=== PATIENT | male | born 1930 | race Caucasian/White ===

== ENCOUNTER 2016-07-12 03:31 | Emergency (ER) | payer MEDICARE ==
[~2016-07-12] VITALS: Ht 167.6 cm; Wt 90.7 kg
[2016-07-12] MEDS ORDERED: SIMV40TA2 PO (03:40)
[2016-07-12] MEDS ORDERED: LOSA25TA8 PO (03:40)
[2016-07-12] MEDS ORDERED: LEVO25TA5 PO (03:41)
[2016-07-12] MEDS ORDERED: EYECAP PO (03:42)
[2016-07-12] MEDS ORDERED: INSULIN SUBQ (03:43)
[2016-07-12 04:25] LABS: BASO % 0.3 % (0.0-1.0); EOS # 0.1 K/mm3 (0.0-0.50); EOS % 2.9 % (0.0-3.0); LARGE UNSTAINED CELL # 0.1 K/mm3 (0.0-0.4); LYMPH # 0.6 K/mm3 (1.5-4.5); LYMPH % 11.2 % (24.0-44.0); MEAN CORPUSCULAR HEMOGLOBIN 31.3 pg (27.0-33.0); MEAN CORPUSCULAR HGB CONC 32.4 g/dl (32.0-36.5); MEAN CORPUSCULAR VOLUME 96.5 fl (80.0-96.0); MONO # 0.5 K/mm3 (0.0-0.8); MONO % 9.7 % (0.0-5.0); NEUTROPHILS # 3.6 K/mm3 (1.8-7.7); PLATELET COUNT, AUTOMATED 215 k/mm3 (150-450); RED CELL DISTRIBUTION WIDTH 14.1 % (11.5-14.5); WHITE BLOOD COUNT 4.9 K/mm3 (4.0-10.0)
[2016-07-12 04:39] LABS: CALCIUM LEVEL 8.6 MG/DL (8.8-10.2); CREATININE FOR GFR 1.38 MG/DL (0.70-1.30); GLOMERULAR FILTRATION RATE 51.8 (>35); POTASSIUM SERUM 4.6 MEQ/L (3.5-5.1)
[2016-07-12] MEDS ORDERED: ISOVUE-370 76% 100ML VIAL (Q9967) As Ordered ONE (05:33)
--- NOTE | 2016-07-12 06:20 | REPUSA ---
CLINICAL HISTORY: Abdominal pain. TECHNIQUE: Multiple axial, sagittal and coronal CT images were obtained through the abdomen and pelvi s after administration of oral and intravenous contrast material. Images were obtained before and aft er IV contrast administration. COMMENTS: The liver is mildly enlarged with decreased attenuation without mass or defect. There is no intra or extrahepatic biliary ductal dilatation. The spleen is normal. The gallbladder contains multiple galls tones. The pancreas is of normal contour and attenuation characteristics. There is no evidence of adr enal mass. Bilateral simple renal cysts. Both kidneys demonstrate prompt and equal nephrograms. The kidneys are normal in size, shape and conf iguration. There is no evidence of renal or ureteral mass. No renal or ureteral calculi are identifie d. There is no hydroureter or hydronephrosis. No evidence for appendicitis. There is no bowel wall thickening. No evidence for small or large helrinda l obstruction. There is no evidence of abdominal ascites or lymphadenopathy. Uncomplicated clonic diverticulosis. There is no evidence of intrinsic or extrinsic bladder mass. There is no pelvic ascites or lymphadeno juan carlos. Urinary catheter balloon in the bladder. Mild diffuse thickening of the wall of the bladder. P rior prostatectomy. Images of the lung bases show no evidence of pleural or parenchymal mass. There are no pleural effusi ons. The bony structures are free of lytic or blastic lesions. Multilevel degenerative changes are seen in volving the thoracolumbar spine. Scattered calcifications are seen involving the aorta and major bran ches compatible with atherosclerosis. IMPRESSION: Diffusely thickened bladder suggestive of mild cystitis. Urinary catheter balloon is seen in the bladder. Prior prostatectomy. Uncomplicated diverticulosis. Mild hepatomegaly with fatty liver infiltration. Mild large bowel fecal stasis. Hepatomegaly with fat infiltration. Thank you for your kind referral of this patient.
[2016-07-12 10:17] LABS: MICROSCOPIC INDICATED? MAN YES (NO)
[2016-07-12 10:19] LABS: RBC, URINE TNTC /hpf (0-3); SQUAMOUS EPITHELIAL CELL URINE SMALL AMOUNT /hpf (SMALL AMT)
[2016-07-12 10:20] LABS: BACTERIA, URINE SMALL AMOUNT; HYALINE CAST, URINE NONE SEEN /lpf (0-1); MICROSCOPIC EXAM PERFORMED
[2016-07-12] MEDS ORDERED: BACT800T5 PO (14:39)
[2016-07-12 15:16] VITALS: BP 160/83
== END 2016-07-12 15:17 | disposition home or self-care (01) ==
LOC: M ED 05:14
DX: N30.41 Irradiation cystitis with hematuria (principal); C61 Malignant neoplasm of prostate
CPT/HCPCS: 51702; 74177; 80048; 81000; 81015; 85025; 85610; 85730; 87086; 88108; 99284; Q9967

== ENCOUNTER 2016-07-22 12:14 | Emergency (ER) | payer MEDICARE ==
[~2016-07-22] VITALS: Ht 167.6 cm; Wt 90.7 kg
[~2016-07-22 12:14] MED LIST: BACT800T5 PO; EYECAP PO; INSULIN SUBQ; LEVO25TA5 PO; LOSA25TA8 PO; SIMV40TA2 PO
[2016-07-22] MEDS ORDERED: PREDOPD OS (12:29)
[2016-07-22] MEDS ORDERED: MORPHINE 4 MG/ML 1ML SYRINGE IM ONE (13:15)
[2016-07-22] MEDS ORDERED: MORPHINE 4 MG/ML 1ML SYRINGE IV ONE (14:00)
[2016-07-22] MEDS ORDERED: NORCOTAB PO (14:49)
--- NOTE | 2016-07-22 14:49 | REP ---
Clinical: Trauma. Technique: AP, lateral, bilateral oblique views of the right elbow. Findings: Age-related osteopenia and moderate osteoarthritic degenerative changes are appreciated. No acute fracture dislocation. Lateral view demonstrates normal positioning to the anterior and posterior fat pads without evidence for effusion. Impression: Moderate osteoarthritic degenerative changes. No acute fracture or dislocation. Signed by Galdino Mason MD 07/22/2016 02:40 P
[2016-07-22] MEDS ORDERED: BACI500O59 EX (14:51)
[2016-07-22 15:12] VITALS: BP 104/66
--- NOTE | 2016-07-22 15:15 | REP ---
Right shoulder series: Four views. History: Trauma. Question dislocation. Findings: Four views of the right shoulder demonstrate an impacted somewhat angulated fracture of the surgical neck of the right humerus. There is diffuse osteopenia. Glenohumeral and acromioclavicular joints are normally aligned. There is osteoarthritis at the AC joint. Impression: Impacted acute fracture surgical neck right humerus. Diffuse osteopenia. No dislocation seen. Signed by Geoff Jefferson MD 07/22/2016 03:17 P
== END 2016-07-22 15:17 | disposition home or self-care (01) ==
LOC: M ED 13:06
DX: S42.201A Unspecified fracture of upper end of right humerus, initial encounter for closed fracture (principal); W01.0XXA Fall on same level from slipping, tripping and stumbling without subsequent striking against object, initial encounter; Y92.512 Supermarket, store or market as the place of occurrence of the external cause; Y93.89 Activity, other specified; Y99.8 Other external cause status; I10 Essential (primary) hypertension; E78.00 Pure hypercholesterolemia, unspecified; E03.9 Hypothyroidism, unspecified; Z85.46 Personal history of malignant neoplasm of prostate; Z79.899 Other long term (current) drug therapy; Z79.4 Long term (current) use of insulin; Z88.0 Allergy status to penicillin; Z87.891 Personal history of nicotine dependence

== ENCOUNTER 2016-08-05 06:02 | Inpatient (IN) | payer MEDICARE ==
[~2016-08-05] VITALS: Ht 162.6 cm; Wt 89.6 kg
[~2016-08-05 06:02] MED LIST changes: +BACI500O59 EX; +NORCOTAB PO; +PREDOPD OS
[2016-08-05] MEDS ORDERED: NS 500 ML IV ONE (06:30)
[2016-08-05 07:28] LABS: BASO % 0.5 % (0.0-1.0); EOS # 0.1 K/mm3 (0.0-0.50); EOS % 1.8 % (0.0-3.0); LARGE UNSTAINED CELL # 0.1 K/mm3 (0.0-0.4); LARGE UNSTAINED CELL % 1.1 % (0.0-4.0); LYMPH # 0.5 K/mm3 (1.5-4.5); LYMPH % 6.9 % (24.0-44.0); MEAN CORPUSCULAR HEMOGLOBIN 30.8 pg (27.0-33.0); MEAN CORPUSCULAR HGB CONC 32.7 g/dl (32.0-36.5); MEAN CORPUSCULAR VOLUME 94.3 fl (80.0-96.0); MONO # 0.4 K/mm3 (0.0-0.8); MONO % 7.2 % (0.0-5.0); NEUTROPHILS % 82.6 % (36.0-66.0); PLATELET COUNT, AUTOMATED 338 k/mm3 (150-450); RED CELL DISTRIBUTION WIDTH 14.3 % (11.5-14.5)
[2016-08-05 07:42] LABS: CALCIUM LEVEL 8.7 MG/DL (8.8-10.2); CREATININE FOR GFR 1.31 MG/DL (0.70-1.30); POTASSIUM SERUM 4.5 MEQ/L (3.5-5.1)
--- NOTE | 2016-08-05 07:57 | REP ---
CT abdomen pelvis without IV and oral contrast: Comparison is 07/11/2012. The visualized lung rome are unremarkable. The unenhanced hepatic parenchyma is homogeneous. There are multiple gallbladder calculi. This is unchanged. There is no biliary duct dilatation. The pancreas and spleen are normal size and unremarkable. The adrenals are unremarkable. There are multiple bilateral renal cortical cysts as previously, the largest on the right today measuring 5.1 cm and the largest on the left today measuring 6.7 cm. There is no hydronephrosis. The abdominal aorta is unremarkable except for calcified atheroma. There is no bowel distension. There is diverticulosis of the descending colon and sigmoid colon without diverticulitis. Pelvis: The appendix is unremarkable. There is no ascites or adenopathy. There is a mass posteriorly in the bladder, not present previously, measuring 3.2 cm. Impression: 3.2 cm bladder mass, not present previously. Multiple bilateral renal cortical cysts. Cholelithiasis. Diverticulosis without diverticulitis. Signed by Edgardo Coker MD 08/05/2016 07:48 A
[2016-08-05] MEDS ORDERED: HumuLIN (NovoLIN)70/30 INSULIN INJ PER UNIT SC SCH ×3 (09:00→17:30)
[2016-08-05 09:35] LABS: MICROSCOPIC INDICATED? MAN YES (NO)
[2016-08-05 09:36] LABS: BACTERIA, URINE NONE SEEN; HYALINE CAST, URINE NONE SEEN /lpf (0-1); MICROSCOPIC EXAM PERFORMED; RBC, URINE TNTC /hpf (0-3); SQUAMOUS EPITHELIAL CELL URINE NONE SEEN /hpf (SMALL AMT); WBC, URINE NONE SEEN /hpf (0-3)
[2016-08-05] MEDS ORDERED: SIMV10TA2 PO (10:05)
[2016-08-05] MEDS ORDERED: VITMTA PO (10:05)
[2016-08-05] MEDS ORDERED: LOSA50TA20 PO (10:05)
[2016-08-05] MEDS ORDERED: NOVO70IN SC (10:05)
[2016-08-05] MEDS ORDERED: BACI50OI TOP (10:09)
[2016-08-05 14:00] VITALS: BP 121/59
[2016-08-05] MEDS ORDERED: DEXTROSE 50% 50 ML SYRINGE IV PRN (14:45)
[2016-08-05] MEDS ORDERED: GLUCOSE 4 GM CHEW TABLET PO PRN (14:45)
[2016-08-05] MEDS ORDERED: GLUCAGON FOR INJ 1 MG VIAL (J1610) SC PRN (14:45)
[2016-08-05] MEDS: LOSARTAN 25 MG TAB PO SCH (14:49)
[2016-08-05] MEDS: SENOKOT S TAB PO SCH ×2 (14:49→20:32)
[2016-08-05] MEDS: HumuLIN (NovoLIN)70/30 INSULIN INJ PER UNIT SC SCH (17:30)
[2016-08-05] MEDS: SIMVASTATIN 10 MG TAB PO SCH (20:32)
[2016-08-05 22:00] VITALS: BP 126/67
--- NOTE | 2016-08-05 23:18 | HPE ---
DATE OF ADMISSION: 08/05/2016 PRIMARY CARE PROVIDER: None. PAST MEDICAL HISTORY: 1. Diabetes. 2. Hypertension. 3. Hypothyroidism. 4. Hyperlipidemia. 5. Benign prostatic hypertrophy (BPH). CHIEF COMPLAINT: Hematuria, painless, started at 5 a.m. this morning. This is his second episode this month. HISTORY OF PRESENT ILLNESS: This is an 86-year-old male who lives in [place] and spends the summer here in [place]. Does not have a primary care provider (PCP) in [place]. Came up from [place] in the beginning of July and had an episode of hematuria on 07/12/2016, for which he came to the emergency room. In the emergency department (ED), patient had an abdomen and pelvis CT done with IV contrast. Patient also had a Beasley placed at that time. That CAT scan showed diffuse, thickened bladder suggestive of mild cystitis. Patient was discharged home from the emergency room. Patient subsequently had a fall and sustained an acute fracture of the surgical neck of right humerus, which was impacted, seen by Dr. Cantor, and no surgical intervention was indicated. Patient lived alone at home and has been having difficulty in managing as he is a right-handed person and he broke has right arm. His son, who lives in [place], has been helping out daily as he can. This morning, patient woke up at 3:00 a.m. and had a regular urinary movement without any blood; then he woke up again at 5:00 a.m. and went to the bathroom and saw hematuria in his diapers. Patient normally is incontinent of urine after prostatic surgery done a few years back and uses 3-4 adult diapers per day. This was the second time he saw a gush of blood in his diapers, so that made him come to the emergency room. In the emergency department (ED), patient had another CT scan of the abdomen and pelvis done, which showed a 3.2 cm bladder mass, which was not seen in the CT scan earlier in the month. Dr. Casas from urology was called from the emergency room and she said the earliest time that she could take the patient to the operating room (OR) for cystoscopy and biopsy would be 08/08/2016, and she suggested discharging the patient home and follow up in the urology clinic for set up of all the required procedures for hematuria; however, patient and family are very anxious, patient being elderly, with his broken right arm, having recurrent hematuria. It was felt that patient is unable to manage himself at home, so the patient is being admitted to the hospitalist service for observation and for possible placement, if required. A three-way Beasley catheter will be placed so that if the patient passes clot, it could be washed out and if required, three-way drainage can be done. Patient denied any pain. Denied any fever or chills. Denies any nausea, vomiting or diarrhea. After the patient was admitted and went up to the medical floor, patient expressed to the nurses that he feels very down and depressed and wants to kill himself. He said that he is 86 years old and if he has a tumor which is not treatable, then it does not make sense for him to live anymore. So, the patient was placed on one-to-one observation for suicidal ideas. PAST SURGICAL HISTORY: 1. Transurethral resection of the prostate. 2. Cataract surgery. ALLERGIES: PENICILLIN. HOME MEDICATIONS: - 70/30 insulin units twice a day - Synthroid 24 mcg daily - losartan 25 mg daily - multivitamins one tablet daily - simvastatin 10 mg at bedtime - Bacitracin ointment to the right arm with dressing changes SOCIAL HISTORY: Patient does not abuse alcohol or recreational drugs. Patient does not smoke. FAMILY HISTORY: Nothing significant. REVIEW OF SYSTEMS: All 10-point review of systems are negative except those mentioned in the history of present illness (HPI). PHYSICAL EXAMINATION: VITAL SIGNS: Temperature 98, pulse 82, respiratory rate 18, blood pressure 118/71, pulse oximetry 96% on room air. GENERAL: Awake, alert, oriented times three, lying down in bed in no acute distress. HEENT: Normocephalic, atraumatic. Moist mucous membranes. Anicteric eyes. CHEST: Clear to auscultation. CARDIOVASCULAR: S1, S2. Regular. No murmurs, rubs or gallops. ABDOMEN: Obese, soft, nontender. Bowel sounds present. EXTREMITIES: No edema. LABORATORY DATA: WBC 6, hemoglobin 12.3, platelets 338. Sodium 140, potassium 4.5, chloride 111, bicarbonate 22, BUN 42, creatinine 1.31, glucose 134, calcium 8.7. CT abdomen and pelvis as noted in the HPI. ASSESSMENT AND PLAN: This is an 86-year-old male admitted for painless hematuria. PLAN: 1. For painless hematuria. CT abdomen and pelvis suggestive of bladder mass. Patient will a cystoscopy and biopsy. Earliest that is possible is 08/08/[address] Casas[address] We will place a Beasley and irrigate blood as required. Patient may need to go home with Beasley catheter. 2. Right humerus fracture. Patient has a sling. 3. Diabetes. We will continue with Human Mixtard insulin 70/30. Check fingersticks. 4. Hypertension. We will continue with losartan. 5. Hypothyroidism. We will continue with Synthroid. 6. Hyperlipidemia. We will continue with simvastatin. 7. Suicidal ideations. This is due to acute medical diagnosis of possible bladder cancer, which has caused the patient to become upset and possibly resulted him in saying that he wants to kill himself. Patient does not have any underlying psychiatric history. We will place the patient on one-to-one observation and continue to monitor his mental status. If required, we may need to consult psychiatry while the patient is in the hospital. 8. History of benign prostatic hypertrophy (BPH) with urinary incontinence. Patient had transurethral resection of the prostate done in the past and since then has been incontinent and uses adult diapers. We will place the patient on continuous Beasley. 9. Deep venous thrombosis (DVT) prophylaxis has been ordered. DISPOSITION: Patient elderly with multiple comorbidities, now with acute right humerus fracture and new onset hematuria. Patient and family feels that he is unable to manage himself adequately at home, so he may need placement either in assisted living or in long-term care. Will consult Patient [facility] Family Services (PFS).
[2016-08-06 00:50] VITALS: BP 133/70
[2016-08-06] MEDS: ACETAMINOPHEN TAB 650MG DOSE (2X325MG) PO PRN (01:46)
[2016-08-06] MEDS: LEVOTHYROXINE 0.025 MG TAB (25 MCG) PO SCH (05:44)
[2016-08-06 06:00] VITALS: BP 109/60
[2016-08-06] MEDS: HumuLIN (NovoLIN)70/30 INSULIN INJ PER UNIT SC SCH ×2 (08:05→18:36)
[2016-08-06] MEDS: SENOKOT S TAB PO SCH ×2 (08:06→20:43)
[2016-08-06] MEDS: LOSARTAN 25 MG TAB PO SCH (08:06)
--- NOTE | 2016-08-06 10:08 | CR ---
DATE OF CONSULTATION: 08/06/2016 REASON FOR CONSULTATION: Gross hematuria. HISTORY OF PRESENT ILLNESS: Mr. Vasquez is an 86-year-old gentleman who came through to the emergency room yesterday with his second episode of gross painless hematuria. He was also seen on 07/12/2016, but the urine had cleared in the emergency room and he was sent home with a followup but never came back to the office. In the emergency room today, he refused to go home and was admitted to the medicine service. He has a Beasley catheter in place now and it is draining clear urine, although he did have one clot last night which needed to be irrigated. The patient has a history of prostate cancer and had a radical prostatectomy done 17 years ago. He has been wearing diapers since that time. It sounds that he is followed in [place], [place] and is a summer visitor here. After his radical prostatectomy, he had a rising PSA and then had radiation therapy in either 2006 or 2007. He believes that his last PSA level was 1.5 in June 2016. He had a CT scan with his first episode of gross hematuria on 07/12/2016 and this showed no significant abnormalities. A repeat CT scan done 08/05/2016 did show a 3.2 cm bladder mass and most likely this is a clot since it was not present previously. He also has multiple bilateral renal cysts. There were findings of cholelithiasis and diverticulosis without diverticulitis. Mr. Martini did break his arm in a fall within the last month. He denies any previous history of gross hematuria or kidney stones. He denies any flank pain. He denies any recent burning with urination and normally when he voids into his diaper he feels as though he is emptying completely. He does have a history of getting recurrent urinary tract infections but this has been many years now. I do not know if he has ever had a full workup for his incontinence but it sounds like he was never interested in having a urinary sphincter placed. PAST MEDICAL HISTORY: 1. High blood pressure. 2. Diabetes. 3. Hypothyroidism. 4. High cholesterol. 5. Prostate cancer. PAST SURGICAL HISTORY: Radical prostatectomy 17 years ago followed by radiation therapy in 2006 and 2007 for a rising PSA, cataract surgery and also removal of a fatty tumor on his leg. MEDICATIONS: - 70/30 insulin unit twice daily - Synthroid 25 mcg daily - losartan 25 mg daily - multivitamin once daily - simvastatin 10 mg daily - bacitracin ointment to his right arm SOCIAL HISTORY: The patient quit smoking a long time ago, but was a smoker. He denies any alcohol abuse or recreational drugs. FAMILY HISTORY: Noncontributory. REVIEW OF SYSTEMS: He does have a broken arm, which is in a sling with significant bruising and discomfort. It sounds as though he has also had some suicidal ideation around this gross hematuria and is extremely worried about the possibility of bladder cancer. A 12 point review was otherwise negative except what was mentioned above. PHYSICAL EXAMINATION: This a well-developed, well-nourished, elderly gentleman lying in a hospital bed in no apparent respiratory distress. He is alert and oriented times three. He has been afebrile and his temperature is now 98.2. His blood pressure is 109/60. His pulse is 72. His respiratory rate is 18. His head is normocephalic, atraumatic. His eyes are pupils equal, round, and reactive to light and accommodation and extraocular muscles intact. His neck is supple and his trachea is midline. He has no significant supraclavicular or cervical adenopathy. His right arm is in a sling with quite a lot of bruising and pain to touch. He has no costovertebral angle tenderness. His abdomen is soft and nontender without any rebound, guarding or masses. His phallus is uncircumcised with a normal meatal opening with a Beasley catheter in place draining clear yellow urine. His testicles are descended. They are slightly atrophic but without masses. A rectal exam shows an empty prostatic fossa. His extremities show no cyanosis, clubbing or edema. Also his heart has a regular rate and rhythm. His lungs are clear to auscultation and percussion. LABORATORY DATA: His BUN is 42 and his creatinine is 1.31. His hemoglobin and hematocrit are 12.3 and 37.7. His white blood count is 6. A microscopic urinalysis shows 3+ protein and too numerous to count red blood cells, but without any white blood cells. A urine culture is pending. RADIOLOGY: A CT scan done 07/12/2016 showed no abnormalities in the bladder and on 08/05/2016 there was a 3.2 cm bladder mass, but this could be blood clots. He also had gallstones and diverticulosis. DISCUSSION: I discussed these findings with Mr. Vasquez in the hospital today. We will need to proceed with cystoscopy with possible clot irrigation and fulguration and if we see any abnormalities we will also go ahead and do a transurethral resection of bladder tumor (TURBT) for whatever needs to be done. He is in agreement with this. We discussed the major risks of the procedure, which included, but was not limited to the risks of general anesthesia, reactions to medication, bleeding, infection, or injury to the system. IMPRESSION: 1. Two episodes of gross painless hematuria and now with clear urine but in a patient who did not feel comfortable going home. 2. 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 3. Incontinence in a patient who has been wearing diapers for the last 17 years and is normally followed by a urologist in [place], [place] but is here for the summer. 4. History of smoking. 5. 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 PLAN: 1. Continue with a Beasley catheter for now and hand irrigate as needed. If he is having significant bleeding or blood clots then he will be started on continuous bladder irrigation. 2. Schedule cystoscopy while he is an inpatient and if there are any abnormalities seen we will plan either clot irrigation, fulguration, or a transurethral resection of any abnormalities seen. 3. Continue medical management for his diabetes, high blood pressure, hypothyroid, etc. Thank you very much for this consultation. Please let me know if I could be of any further assistance in the future.
--- NOTE | 2016-08-06 10:57 | IPNPDOC ---
Subjective Date Seen The patient was seen on 08/06/16. Subjective Chief Complaint/HPI The patient is a 86-year-old male admitted with a reason for visit of Acute Kidney Injury/Hematuria. Events since last encounter patient feels better this morning, more cheerful has now we have a plan for his treatment . he denied any suicidal ideations. says yesterday he was very overwhelmed with all the medical problems going on for the past month however he never meant to actually meant kill himself said was just a phrase he used to express his frustration. But today he feels more relaxed as he understands better whats going on and we have discussed the plan of treatment with him. Objective Physical Examination General Exam: Positive: Alert, Cooperative, No Acute Distress Eye Exam: Positive: PERRLA, Conjunctiva & lids normal, EOMI, Negative: Sclera icteric ENT Exam: Positive: Atraumatic, Mucous membr. moist/pink, Pharynx Normal Neck Exam: Positive: Supple, Negative: JVD, thyromegaly Chest Exam: Positive: Clear to auscultation, Normal air movement Heart Exam: Positive: Rate Normal, Regular Rhythm, Normal S1, Normal S2, Negative: Murmurs, Rubs Abdomen Exam: Positive: Normal bowel sounds, Soft, Negative: Tenderness, Hepatospenomegaly Extremity Exam: Positive: Normal pulses, Negative: Clubbing, Cyanosis, Edema Assessment /Plan Problems (1) Hematuria Status: Acute Problem Text: ct shows bladder mass unsure whether it is clot or tumor planned for cystoscopy on 08/[address] Casas. (2) Suicidal ideations Status: Resolved Problem Text: will dc sitter (3) Hyperlipidemia Status: Chronic (4) Hypothyroid Status: Chronic (5) Diabetes Status: Chronic Problem Text: continue mixtard 70/30 insulin (6) MALIK (acute kidney injury) Status: Acute (7) Fracture of neck of right humerus Status: Acute Problem Text: has a slig will get PT and OT evaluation. (8) Hypertension Status: Chronic Problem Text: continue losartan. Plan/VTE VTE Prophylaxis Ordered?: Yes Plan/Urinary Catheter Reason for insertion/continuin: Patient request VS, I&O, 24H, Fishbone Vital Signs/I&O Vital Signs Date Time Temp Pulse Resp B/P (MAP) Pulse Ox O2 Delivery O2 Flow Rate FiO2 08/06/16 08:06 109/60 08/06/16 06:00 98.2 72 18 96 Room Air I&O- Last 24 Hours up to 6 AM 08/06/16 06:00 Intake Total 1460 ml Output Total 1270 ml Balance 190 ml Laboratory Data Microbiology Microbiology 08/05/16 Urine Culture - Final, Complete NATALIE COX MD August 06, 2016 10:57
[2016-08-06 12:08] LABS: BASO % 0.2 % (0.0-1.0); EOS # 0.1 K/mm3 (0.0-0.50); EOS % 1.5 % (0.0-3.0); LARGE UNSTAINED CELL # 0.1 K/mm3 (0.0-0.4); LARGE UNSTAINED CELL % 0.9 % (0.0-4.0); LYMPH # 0.6 K/mm3 (1.5-4.5); MEAN CORPUSCULAR HEMOGLOBIN 31.1 pg (27.0-33.0); MEAN CORPUSCULAR VOLUME 94.4 fl (80.0-96.0); MONO # 0.6 K/mm3 (0.0-0.8); MONO % 7.5 % (0.0-5.0); NEUTROPHILS # 6.3 K/mm3 (1.8-7.7); NEUTROPHILS % 82.9 % (36.0-66.0); PLATELET COUNT, AUTOMATED 319 k/mm3 (150-450); WHITE BLOOD COUNT 7.6 K/mm3 (4.0-10.0)
[2016-08-06 12:28] LABS: CALCIUM LEVEL 8.2 MG/DL (8.8-10.2); CREATININE FOR GFR 1.23 MG/DL (0.70-1.30); GLOMERULAR FILTRATION RATE 59.1 (>35); POTASSIUM SERUM 4.6 MEQ/L (3.5-5.1)
[2016-08-06 14:00] VITALS: BP 110/63
[2016-08-06] MEDS: SIMVASTATIN 10 MG TAB PO SCH (20:43)
[2016-08-06 22:00] VITALS: BP 117/65
[2016-08-07] MEDS: LEVOTHYROXINE 0.025 MG TAB (25 MCG) PO SCH (06:04)
[2016-08-07 06:50] LABS: BASO % 0.2 % (0.0-1.0); EOS # 0.2 K/mm3 (0.0-0.50); EOS % 2.5 % (0.0-3.0); LARGE UNSTAINED CELL # 0.1 K/mm3 (0.0-0.4); LARGE UNSTAINED CELL % 1.7 % (0.0-4.0); LYMPH # 0.3 K/mm3 (1.5-4.5); LYMPH % 5.2 % (24.0-44.0); MEAN CORPUSCULAR HEMOGLOBIN 30.7 pg (27.0-33.0); MEAN CORPUSCULAR HGB CONC 32.7 g/dl (32.0-36.5); MONO # 0.5 K/mm3 (0.0-0.8); MONO % 7.6 % (0.0-5.0); NEUTROPHILS # 5.5 K/mm3 (1.8-7.7); NEUTROPHILS % 82.7 % (36.0-66.0); PLATELET COUNT, AUTOMATED 303 k/mm3 (150-450); RED CELL DISTRIBUTION WIDTH 13.8 % (11.5-14.5); WHITE BLOOD COUNT 6.6 K/mm3 (4.0-10.0)
[2016-08-07 06:57] LABS: ANION GAP 7 MEQ/L (8-16); BLOOD UREA NITROGEN 27 MG/DL (7-18); CALCIUM LEVEL 8.1 MG/DL (8.8-10.2); CARBON DIOXIDE LEVEL 24 MEQ/L (21-32); CHLORIDE LEVEL 109 MEQ/L (98-107); CREATININE FOR GFR 1.18 MG/DL (0.70-1.30); GLOMERULAR FILTRATION RATE > 60.0 (>35); GLUCOSE, FASTING 120 MG/DL (83-110); POTASSIUM SERUM 4.6 MEQ/L (3.5-5.1); SODIUM LEVEL 140 MEQ/L (136-145)
[2016-08-07] MEDS: HumuLIN (NovoLIN)70/30 INSULIN INJ PER UNIT SC SCH ×2 (07:30→18:02)
[2016-08-07] MEDS: SENOKOT S TAB PO SCH ×2 (08:30→20:06)
[2016-08-07] MEDS: LOSARTAN 25 MG TAB PO SCH (08:30)
[2016-08-07] MEDS ORDERED: FUROSEMIDE 40 MG/4 ML VIAL (J1940) IV ONE (11:15)
--- NOTE | 2016-08-07 11:16 | IPNPDOC ---
Subjective Date Seen The patient was seen on 08/07/16. Subjective Chief Complaint/HPI The patient is a 86-year-old male admitted with a reason for visit of Acute Kidney Injury/Hematuria. Events since last encounter complains of feeling constipated and wants more stool softeners this am. otherwise no new complaints. Objective Physical Examination General Exam: Positive: Alert, Cooperative, No Acute Distress Eye Exam: Positive: PERRLA, Conjunctiva & lids normal, EOMI, Negative: Sclera icteric ENT Exam: Positive: Atraumatic, Mucous membr. moist/pink, Pharynx Normal Neck Exam: Positive: Supple, Negative: JVD, thyromegaly Chest Exam: Positive: Clear to auscultation, Normal air movement Heart Exam: Positive: Rate Normal, Regular Rhythm, Normal S1, Normal S2, Negative: Murmurs, Rubs Abdomen Exam: Positive: Normal bowel sounds, Soft, Negative: Tenderness, Hepatospenomegaly Extremity Exam: Positive: Normal pulses, Negative: Clubbing, Cyanosis, Edema Assessment /Plan Problems (1) Hematuria Status: Acute Problem Text: ct shows bladder mass unsure whether it is clot or tumor planned for cystoscopy on 08/[address] Casas. (2) Hyperlipidemia Status: Chronic (3) Hypothyroid Status: Chronic (4) Diabetes Status: Chronic Problem Text: continue mixtard 70/30 insulin (5) MALIK (acute kidney injury) Status: Resolved (6) Fracture of neck of right humerus Status: Acute Problem Text: has a slig will get PT and OT evaluation. (7) Hypertension Status: Chronic Problem Text: continue losartan. Plan/VTE VTE Prophylaxis Ordered?: Yes Plan/Urinary Catheter Reason for insertion/continuin: Patient request VS, I&O, 24H, Fishbone Vital Signs/I&O Vital Signs Date Time Temp Pulse Resp B/P (MAP) Pulse Ox O2 Delivery O2 Flow Rate FiO2 08/07/16 08:30 117/65 08/06/16 23:26 Room Air 08/06/16 22:00 99.5 76 19 93 I&O- Last 24 Hours up to 6 AM 08/07/16 06:00 Intake Total 790 ml Output Total 1460 ml Balance -670 ml Laboratory Data 24H LABS Laboratory Tests 2 08/06/16 11:27: Bedside Glucose (Misc Panel) 127H 08/06/16 16:32: Bedside Glucose (Misc Panel) 117H 08/06/16 21:38: Bedside Glucose (Misc Panel) 118H 08/07/16 06:28: White Blood Count 6.6, Red Blood Count 3.86L, Hemoglobin 11.8L, Hematocrit 36.3L , Mean Corpuscular Volume 94.0, Mean Corpuscular Hemoglobin 30.7, Mean Corpuscular Hemoglobin Concent 32.7, Red Cell Distribution Width 13.8, Platelet Count 303, Neutrophils (%) (Auto) 82.7H, Lymphocytes (%) (Auto) 5.2L, Monocytes (%) (Auto) 7.6H, Eosinophils (%) (Auto) 2.5, Basophils (%) (Auto) 0.2, Neutrophils # (Auto) 5.5, Lymphocytes # (Auto) 0.3L, Monocytes # (Auto) 0.5, Eosinophils # (Auto) 0.2, Basophils # (Auto) 0.0, Large Unclassified Cells % 1.7 , Large Unclassified Cells # 0.1, Anion Gap 7L, Glomerular Filtration Rate > 60.0, Blood Urea Nitrogen 27H, Creatinine 1.18, Sodium Level 140, Potassium Level 4.6, Chloride Level 109H, Carbon Dioxide Level 24, Calcium Level 8.1L CBC/BMP Laboratory Tests 08/07/16 06:28 Red Blood Count 3.86 L, Mean Corpuscular Volume 94.0, Mean Corpuscular Hemoglobin 30.7, Mean Corpuscular Hemoglobin Concent 32.7, Red Cell Distribution Width 13.8, Neutrophils (%) (Auto) 82.7 H, Lymphocytes (%) (Auto) 5.2 L, Monocytes (%) (Auto) 7.6 H, Eosinophils (%) (Auto) 2.5, Basophils (%) ( Auto) 0.2, Neutrophils # (Auto) 5.5, Lymphocytes # (Auto) 0.3 L, Monocytes # ( Auto) 0.5, Eosinophils # (Auto) 0.2, Basophils # (Auto) 0.0, Calcium Level 8.1 L Microbiology Microbiology 08/05/16 Urine Culture - Final, Complete NATALIE COX MD Aug 07, 2016 11:16
[2016-08-07 14:00] VITALS: BP 110/64
--- NOTE | 2016-08-07 19:18 | IPN ---
DATE: 08/07/2016 Mr. Vasquez's urine has been clear overnight and he has not required any irrigation of the bladder. He still refuses to go home and we tried to place him on the operating room schedule today but with the add-on cases this was not possible. He is an on for tomorrow afternoon. PHYSICAL EXAMINATION: The Beasley catheter is draining clear yellow urine. He has no costovertebral tenderness (CVA) tenderness and his abdomen is soft and nontender. He is afebrile. His blood pressure is 110/64 and his pulse is 94 with a respiratory rate is 18. LABORATORY DATA: His H and H is 11.8 over 36.3 which is fairly stable. His white blood count is 6.6 and his BUN is 27 with a creatinine of 1.18. IMPRESSION: 1. Gross hematuria in a patient with a history of prostate cancer status post a radical prostatectomy left incontinent afterwards. 2. Status post radiation therapy. PLAN: The patient to go to the operating room for cystoscopy and if there are his there are any clots seen we will irrigate, fulgurated and if we see any abnormalities do biopsies or any transurethral resections as needed. Informed consent was obtained in both verbal and written form today and signed.
[2016-08-07] MEDS: SIMVASTATIN 10 MG TAB PO SCH (20:05)
[2016-08-07 21:05] VITALS: BP 106/54
[2016-08-08] VITALS (7 sets, daily range): BP systolic 101–134; BP diastolic 57–78
[2016-08-08] MEDS: LEVOTHYROXINE 0.025 MG TAB (25 MCG) PO SCH (05:35)
[2016-08-08 06:02] LABS: BASO % 0.2 % (0.0-1.0); EOS # 0.2 K/mm3 (0.0-0.50); EOS % 2.7 % (0.0-3.0); LARGE UNSTAINED CELL # 0.1 K/mm3 (0.0-0.4); LARGE UNSTAINED CELL % 1.6 % (0.0-4.0); LYMPH # 0.6 K/mm3 (1.5-4.5); LYMPH % 7.5 % (24.0-44.0); MEAN CORPUSCULAR HEMOGLOBIN 31.2 pg (27.0-33.0); MEAN CORPUSCULAR HGB CONC 33.4 g/dl (32.0-36.5); MEAN CORPUSCULAR VOLUME 93.4 fl (80.0-96.0); MONO # 0.5 K/mm3 (0.0-0.8); MONO % 7.4 % (0.0-5.0); NEUTROPHILS # 5.6 K/mm3 (1.8-7.7); NEUTROPHILS % 80.7 % (36.0-66.0); PLATELET COUNT, AUTOMATED 286 k/mm3 (150-450); RED CELL DISTRIBUTION WIDTH 13.9 % (11.5-14.5); WHITE BLOOD COUNT 6.9 K/mm3 (4.0-10.0)
[2016-08-08 06:31] LABS: CALCIUM LEVEL 8.3 MG/DL (8.8-10.2); CREATININE FOR GFR 1.23 MG/DL (0.70-1.30); GLOMERULAR FILTRATION RATE 59.1 (>35)
[2016-08-08] MEDS: HumuLIN (NovoLIN)70/30 INSULIN INJ PER UNIT SC SCH ×2 (07:24→17:30)
[2016-08-08] MEDS: LOSARTAN 25 MG TAB PO SCH (08:19)
[2016-08-08] MEDS: SENOKOT S TAB PO SCH ×3 (08:19→22:06)
--- NOTE | 2016-08-08 08:51 | IPNPDOC ---
Subjective Date Seen The patient was seen on 08/08/16. Subjective Chief Complaint/HPI The patient is a 86-year-old male admitted with a reason for visit of Acute Kidney Injury/Hematuria. Events since last encounter no new complaints. Objective Physical Examination General Exam: Positive: Alert, Cooperative, No Acute Distress Eye Exam: Positive: PERRLA, Conjunctiva & lids normal, EOMI, Negative: Sclera icteric ENT Exam: Positive: Atraumatic, Mucous membr. moist/pink, Pharynx Normal Neck Exam: Positive: Supple, Negative: JVD, thyromegaly Chest Exam: Positive: Clear to auscultation, Normal air movement Heart Exam: Positive: Rate Normal, Regular Rhythm, Normal S1, Normal S2, Negative: Murmurs, Rubs Abdomen Exam: Positive: Normal bowel sounds, Soft, Negative: Tenderness, Hepatospenomegaly Extremity Exam: Positive: Normal pulses, Negative: Clubbing, Cyanosis, Edema Assessment /Plan Problems (1) Hematuria Status: Resolved Problem Text: ct shows bladder mass unsure whether it is clot or tumor planned for cystoscopy on 08/[address] Casas. (2) Hyperlipidemia Status: Chronic (3) Hypothyroid Status: Chronic (4) Diabetes Status: Chronic Problem Text: continue mixtard 70/30 insulin (5) MALIK (acute kidney injury) Status: Resolved (6) Fracture of neck of right humerus Status: Acute Problem Text: has a slig will get PT and OT evaluation. (7) Hypertension Status: Chronic Problem Text: continue losartan. Plan/VTE VTE Prophylaxis Ordered?: Yes Plan/Urinary Catheter Reason for insertion/continuin: Patient request VS, I&O, 24H, Fishbone Vital Signs/I&O Vital Signs Date Time Temp Pulse Resp B/P (MAP) Pulse Ox O2 Delivery O2 Flow Rate FiO2 08/08/16 05:15 98.4 80 17 119/69 (86) 96 Room Air 08/07/16 21:05 I&O- Last 24 Hours up to 6 AM 08/08/16 06:00 Intake Total 840 ml Output Total 775 ml Balance 65 ml Laboratory Data 24H LABS Laboratory Tests 2 08/07/16 11:37: Bedside Glucose (Misc Panel) 155H 08/07/16 16:42: Bedside Glucose (Misc Panel) 137H 08/08/16 05:49: White Blood Count 6.9, Red Blood Count 3.67L, Hemoglobin 11.5L, Hematocrit 34.3L , Mean Corpuscular Volume 93.4, Mean Corpuscular Hemoglobin 31.2, Mean Corpuscular Hemoglobin Concent 33.4, Red Cell Distribution Width 13.9, Platelet Count 286, Neutrophils (%) (Auto) 80.7H, Lymphocytes (%) (Auto) 7.5L, Monocytes (%) (Auto) 7.4H, Eosinophils (%) (Auto) 2.7, Basophils (%) (Auto) 0.2, Neutrophils # (Auto) 5.6, Lymphocytes # (Auto) 0.6L, Monocytes # (Auto) 0.5, Eosinophils # (Auto) 0.2, Basophils # (Auto) 0.0, Large Unclassified Cells % 1.6 , Large Unclassified Cells # 0.1, Anion Gap 7L, Glomerular Filtration Rate 59.1 , Blood Urea Nitrogen 29H, Creatinine 1.23, Sodium Level 140, Potassium Level 4.0, Chloride Level 107, Carbon Dioxide Level 26, Calcium Level 8.3L CBC/BMP Laboratory Tests 08/08/16 05:49 Red Blood Count 3.67 L, Mean Corpuscular Volume 93.4, Mean Corpuscular Hemoglobin 31.2, Mean Corpuscular Hemoglobin Concent 33.4, Red Cell Distribution Width 13.9, Neutrophils (%) (Auto) 80.7 H, Lymphocytes (%) (Auto) 7.5 L, Monocytes (%) (Auto) 7.4 H, Eosinophils (%) (Auto) 2.7, Basophils (%) ( Auto) 0.2, Neutrophils # (Auto) 5.6, Lymphocytes # (Auto) 0.6 L, Monocytes # ( Auto) 0.5, Eosinophils # (Auto) 0.2, Basophils # (Auto) 0.0, Calcium Level 8.3 L Microbiology Microbiology 08/05/16 Urine Culture - Final, Complete NATALIE COX MD Aug 08, 2016 08:51
[2016-08-08] MEDS: MOM 30ML SUSPENSION UDC PO SCH (09:00)
[2016-08-08] MEDS ORDERED: LIDOCAINE 2% INJ 100 MG/5 ML SDV (FOR ANES.) As Ordered ONE (18:55)
[2016-08-08] MEDS ORDERED: PROPOFOL 200 MG/20 ML VIAL As Ordered ONE (18:55)
[2016-08-08] MEDS ORDERED: fentaNYL 100 MCG/2 ML INJECTION (J3010) As Ordered ONE (18:55)
[2016-08-08] MEDS ORDERED: MIDAZOLAM INJ 2 MG/2 ML VIAL (J2250) As Ordered ONE (18:55)
[2016-08-08] MEDS ORDERED: LIDOCAINE 2% 5ML JELLY UROJET As Ordered ONE (18:57)
[2016-08-08] MEDS ORDERED: CIPROFLOXACIN/D5W 400 MG/200 ML BAG (J0744) As Ordered ONE (19:28)
[2016-08-08] MEDS ORDERED: PHENYLephrine HCL 500 MCG/5 ML (100MCG/ML) SYRINGE (J2370) As Ordered ONE (19:50)
[2016-08-08] MEDS ORDERED: ePHEDrine SULFATE 25 MG/5 ML(5MG/ML) SYRINGE As Ordered ONE (19:54)
[2016-08-08] MEDS ORDERED: ONDANSETRON 4MG/2ML VIAL (J2405) As Ordered ONE (19:57)
[2016-08-08] MEDS ORDERED: fentaNYL 100 MCG/2 ML INJECTION (J3010) IV PRN (20:30)
[2016-08-08] MEDS ORDERED: LR 1,000 ML IV SCH (20:30)
[2016-08-08] MEDS ORDERED: HumaLOG INSULIN (NovoLOG) PER UNIT As Ordered ONE (20:50)
[2016-08-08] MEDS ORDERED: HumaLOG INSULIN (NovoLOG) PER UNIT SC ONE (21:00)
[2016-08-08] MEDS: SIMVASTATIN 10 MG TAB PO SCH (22:06)
[2016-08-08] MEDS: ACETAMINOPHEN TAB 650MG DOSE (2X325MG) PO PRN (22:07)
[2016-08-09] VITALS (10 sets, daily range): BP systolic 90–116; BP diastolic 52–70
[2016-08-09] MEDS: ACETAMINOPHEN TAB 650MG DOSE (2X325MG) PO PRN (04:52)
[2016-08-09 05:01] LABS: BASO % 0.3 % (0.0-1.0); EOS # 0.2 K/mm3 (0.0-0.50); EOS % 3.1 % (0.0-3.0); LARGE UNSTAINED CELL # 0.1 K/mm3 (0.0-0.4); LARGE UNSTAINED CELL % 1.2 % (0.0-4.0); LYMPH # 0.3 K/mm3 (1.5-4.5); LYMPH % 5.3 % (24.0-44.0); MEAN CORPUSCULAR HGB CONC 32.9 g/dl (32.0-36.5); MEAN CORPUSCULAR VOLUME 94.4 fl (80.0-96.0); MONO # 0.5 K/mm3 (0.0-0.8); MONO % 7.7 % (0.0-5.0); NEUTROPHILS # 5.2 K/mm3 (1.8-7.7); NEUTROPHILS % 82.4 % (36.0-66.0); PLATELET COUNT, AUTOMATED 328 k/mm3 (150-450); RED CELL DISTRIBUTION WIDTH 13.7 % (11.5-14.5); WHITE BLOOD COUNT 6.3 K/mm3 (4.0-10.0)
[2016-08-09 05:27] LABS: ANION GAP 7 MEQ/L (8-16); BLOOD UREA NITROGEN 26 MG/DL (7-18); CALCIUM LEVEL 8.2 MG/DL (8.8-10.2); CARBON DIOXIDE LEVEL 26 MEQ/L (21-32); CHLORIDE LEVEL 106 MEQ/L (98-107); CREATININE FOR GFR 1.21 MG/DL (0.70-1.30); GLOMERULAR FILTRATION RATE > 60.0 (>35); GLUCOSE, FASTING 136 MG/DL (83-110); POTASSIUM SERUM 4.1 MEQ/L (3.5-5.1); SODIUM LEVEL 139 MEQ/L (136-145)
[2016-08-09] MEDS: LEVOTHYROXINE 0.025 MG TAB (25 MCG) PO SCH (06:00)
[2016-08-09] MEDS: HumuLIN (NovoLIN)70/30 INSULIN INJ PER UNIT SC SCH ×2 (08:54→18:28)
[2016-08-09] MEDS: LOSARTAN 25 MG TAB PO SCH (09:57)
[2016-08-09] MEDS: MOM 30ML SUSPENSION UDC PO SCH (09:57)
[2016-08-09] MEDS: SENOKOT S TAB PO SCH ×2 (09:57→20:23)
[2016-08-09] MEDS ORDERED: NS 500 ML IV ONE ×2 (11:45→21:00)
--- NOTE | 2016-08-09 11:54 | IPNPDOC ---
Subjective Date Seen The patient was seen on 08/09/16. Subjective Chief Complaint/HPI The patient is a 86-year-old male admitted with a reason for visit of Acute Kidney Injury/Hematuria. Events since last encounter patient had cystoscopy, removal of clot and bladder tumor removal on 08/08/16, overnight had some bladder spasms requiring irrigation, overall had poor urine output, this morning BPs soft. patient says feels a little thirty, denies any abdominal pain , denies any chest pain or sob , had 2 good bowel movements today. no fever or chills. Objective Physical Examination General Exam: Positive: Alert, Cooperative, No Acute Distress Eye Exam: Positive: PERRLA, Conjunctiva & lids normal, EOMI, Negative: Sclera icteric ENT Exam: Positive: Atraumatic, Mucous membr. moist/pink, Pharynx Normal Neck Exam: Positive: Supple, Negative: JVD, thyromegaly Chest Exam: Positive: Clear to auscultation, Normal air movement Heart Exam: Positive: Rate Normal, Regular Rhythm, Normal S1, Normal S2, Negative: Murmurs, Rubs Abdomen Exam: Positive: Normal bowel sounds, Soft, Negative: Tenderness, Hepatospenomegaly Extremity Exam: Positive: Normal pulses, Negative: Clubbing, Cyanosis, Edema Assessment /Plan Problems (1) Hematuria Status: Resolved Problem Text: ct shows bladder mass Had cysto and bladder tumor removal with clot evacuation on 08/08/16 (2) Hyperlipidemia Status: Chronic (3) Hypothyroid Status: Chronic (4) Diabetes Status: Chronic Problem Text: continue mixtard 70/30 insulin (5) MALIK (acute kidney injury) Status: Resolved (6) Fracture of neck of right humerus Status: Acute Problem Text: has a slig will get PT and OT evaluation. (7) Hypertension Status: Chronic Problem Text: BPs soft will hold losartan. will give 500 cc ivf. Plan/VTE VTE Prophylaxis Ordered?: Yes Plan/Urinary Catheter Reason for insertion/continuin: Patient request VS, I&O, 24H, Fishbone Vital Signs/I&O Vital Signs Date Time Temp Pulse Resp B/P (MAP) Pulse Ox O2 Delivery O2 Flow Rate FiO2 08/09/16 10:00 97.8 84 21 90/52 (65) 92 Room Air 08/08/16 21:10 2 I&O- Last 24 Hours up to 6 AM 08/09/16 06:00 Intake Total 880 ml Output Total 800 ml Balance 80 ml Laboratory Data 24H LABS Laboratory Tests 2 08/08/16 15:57: Bedside Glucose (Misc Panel) 128H 08/08/16 20:31: Bedside Glucose (Misc Panel) 183H 08/09/16 04:53: White Blood Count 6.3, Red Blood Count 3.98L, Hemoglobin 12.4L, Hematocrit 37.6L , Mean Corpuscular Volume 94.4, Mean Corpuscular Hemoglobin 31.0, Mean Corpuscular Hemoglobin Concent 32.9, Red Cell Distribution Width 13.7, Platelet Count 328, Neutrophils (%) (Auto) 82.4H, Lymphocytes (%) (Auto) 5.3L, Monocytes (%) (Auto) 7.7H, Eosinophils (%) (Auto) 3.1H, Basophils (%) (Auto) 0.3, Neutrophils # (Auto) 5.2, Lymphocytes # (Auto) 0.3L, Monocytes # (Auto) 0.5, Eosinophils # (Auto) 0.2, Basophils # (Auto) 0.0, Large Unclassified Cells % 1.2 , Large Unclassified Cells # 0.1, Anion Gap 7L, Glomerular Filtration Rate > 60.0, Blood Urea Nitrogen 26H, Creatinine 1.21, Sodium Level 139, Potassium Level 4.1, Chloride Level 106, Carbon Dioxide Level 26, Calcium Level 8.2L CBC/BMP Laboratory Tests 08/09/16 04:53 Red Blood Count 3.98 L, Mean Corpuscular Volume 94.4, Mean Corpuscular Hemoglobin 31.0, Mean Corpuscular Hemoglobin Concent 32.9, Red Cell Distribution Width 13.7, Neutrophils (%) (Auto) 82.4 H, Lymphocytes (%) (Auto) 5.3 L, Monocytes (%) (Auto) 7.7 H, Eosinophils (%) (Auto) 3.1 H, Basophils (%) ( Auto) 0.3, Neutrophils # (Auto) 5.2, Lymphocytes # (Auto) 0.3 L, Monocytes # ( Auto) 0.5, Eosinophils # (Auto) 0.2, Basophils # (Auto) 0.0, Calcium Level 8.2 L Microbiology Microbiology 08/05/16 Urine Culture - Final, Complete NATALIE COX MD Aug 09, 2016 11:54
--- NOTE | 2016-08-09 11:55 | RO ---
DATE OF SURGICAL PROCEDURE: 08/08/2016 PREOPERATIVE DIAGNOSIS: Gross hematuria and question of a bladder mass on CT scan. POSTOPERATIVE DIAGNOSIS: Radiation cystitis changes. PROCEDURE: Cystoscopy, TURBT and fulguration. SURGEON: Asha Casas MD CHEMICAL ENGINEERING TECHNOLOGIST: ANESTHESIA: General. MEDICATIONS: Cipro 400 mg IV preoperatively. DRAINS: 20-Mauritian three-way Beasley catheter. SPECIMENS: Bladder lesions. INDICATIONS FOR PROCEDURE: The patient is an 86-year-old gentleman with his second episode in a month of gross hematuria. His urine had cleared in the emergency room but a CT scan had shown a possible bladder mass and he did not feel comfortable going home, so he was admitted to the hospital. His urine remained clear. His history includes a radical prostatectomy that left him incontinent and then several years later he had radiation therapy for a rising prostate-specific antigen (PSA) level. His last PSA was 1.5. It was decided to bring him to the operating room for cystoscopy and to take care of any abnormal findings that were seen, including a TURBT of any bladder tumors, bladder biopsies, fulguration and clot irrigation. Informed consent was obtained in both verbal and written form. DESCRIPTION OF PROCEDURE: The patient was brought into the operating room. Sequential compression devices and thromboembolic deterrent (NICOLE) stockings were in place. Preoperative antibiotics were given. First, the patient was placed in the lithotomy position without sedation so we could do a cystoscopy. The urethra was noted to be open without any evidence of lesions or strictures. The prostatic fossa was empty. Upon entering the bladder, both ureteral orifices were seen. There was significant changes throughout the bladder consistent with radiation but also papillary type lesions throughout, but again, this looked more inflammatory than it looked like transitional cell carcinoma. Because there was a very large patch of these though, we decided to put the patient under general anesthesia and I placed a three-way 26-Mauritian resectoscope and resected a few of the papillary patches. I then changed to and was able to create hemostasis and fulgurate all the areas in the bladder that looked like they may bleed in the future, which was about 60% of the bladder lining. The patient then had a 20-Mauritian three-way Beasley catheter replaced and he was returned to the recovery room in stable condition.
[2016-08-09] MEDS ORDERED: NS 250 ML IV ONE (14:30)
--- NOTE | 2016-08-09 19:18 | IPN ---
DATE: 08/09/2016 Mr. Vasquez underwent cystoscopy last night and was found to have changes consistent with radiation cystitis. A resectoscope was used and tissue was sent for pathology. His urine has been completely clear overnight, although he has had a decreased urine output. Postvoid residual and irrigation of the catheter shows that it is not a catheter issues. PHYSICAL EXAMINATION: He is afebrile. His blood pressure is 111/58. His pulse is 96. His respiratory rate is 22. His total urine output yesterday was 900 mL and was 525 mL so far today. He has no costovertebral angle (CVA) tenderness. His abdomen is soft and nontender. His Beasley is draining clear yellow urine. His extremities show no cyanosis, clubbing or edema. LABORATORY DATA: His hemoglobin and hematocrit (H and H) is 12.4/37.60, and most likely he is a little dry. His white blood count is 6.3 and his platelets are 328. His BUN is 26 and his creatinine is 1.21. Final urine culture shows contamination. 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 PLAN: Beasley catheter can be removed at any time, but I assume was left in by medicine at this point to follow. 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
[2016-08-09] MEDS: SIMVASTATIN 10 MG TAB PO SCH (20:25)
[2016-08-10 05:48] LABS: BASO % 0.1 % (0.0-1.0); EOS # 0.2 K/mm3 (0.0-0.50); EOS % 3.5 % (0.0-3.0); LARGE UNSTAINED CELL # 0.1 K/mm3 (0.0-0.4); LARGE UNSTAINED CELL % 1.5 % (0.0-4.0); LYMPH # 0.4 K/mm3 (1.5-4.5); LYMPH % 6.3 % (24.0-44.0); MEAN CORPUSCULAR HEMOGLOBIN 31.2 pg (27.0-33.0); MEAN CORPUSCULAR HGB CONC 33.1 g/dl (32.0-36.5); MEAN CORPUSCULAR VOLUME 94.2 fl (80.0-96.0); MONO # 0.4 K/mm3 (0.0-0.8); MONO % 7.1 % (0.0-5.0); NEUTROPHILS # 4.5 K/mm3 (1.8-7.7); NEUTROPHILS % 81.6 % (36.0-66.0); PLATELET COUNT, AUTOMATED 297 k/mm3 (150-450); RED CELL DISTRIBUTION WIDTH 13.7 % (11.5-14.5); WHITE BLOOD COUNT 5.5 K/mm3 (4.0-10.0)
[2016-08-10] MEDS: LEVOTHYROXINE 0.025 MG TAB (25 MCG) PO SCH (05:57)
[2016-08-10 06:00] VITALS: BP 116/60
[2016-08-10 06:05] LABS: ANION GAP 8 MEQ/L (8-16); BLOOD UREA NITROGEN 28 MG/DL (7-18); CALCIUM LEVEL 7.5 MG/DL (8.8-10.2); CARBON DIOXIDE LEVEL 23 MEQ/L (21-32); CHLORIDE LEVEL 109 MEQ/L (98-107); GLOMERULAR FILTRATION RATE > 60.0 (>35); GLUCOSE, FASTING 137 MG/DL (83-110); POTASSIUM SERUM 4.1 MEQ/L (3.5-5.1); SODIUM LEVEL 140 MEQ/L (136-145)
[2016-08-10] MEDS: SENOKOT S TAB PO SCH ×2 (09:00→20:59)
[2016-08-10] MEDS ORDERED: MOM 30ML SUSPENSION UDC PO PRN (09:00)
[2016-08-10] MEDS: HumuLIN (NovoLIN)70/30 INSULIN INJ PER UNIT SC SCH ×2 (09:24→18:19)
[2016-08-10 09:25] VITALS: BP 110/64
[2016-08-10] MEDS: LOSARTAN 25 MG TAB PO SCH (09:25)
--- NOTE | 2016-08-10 10:10 | IPNPDOC ---
Subjective Date Seen The patient was seen on 08/10/16. Subjective Chief Complaint/HPI The patient is a 86-year-old male admitted with a reason for visit of Acute Kidney Injury/Hematuria. Events since last encounter no complaints today , BP was soft over night requiring one bolus, no hematuria , will dc moreno. no fever or chills, no chest pain or shortness of breath. Objective Physical Examination General Exam: Positive: Alert, Cooperative, No Acute Distress Eye Exam: Positive: PERRLA, Conjunctiva & lids normal, EOMI, Negative: Sclera icteric ENT Exam: Positive: Atraumatic, Mucous membr. moist/pink, Pharynx Normal Neck Exam: Positive: Supple, Negative: JVD, thyromegaly Chest Exam: Positive: Clear to auscultation, Normal air movement Heart Exam: Positive: Rate Normal, Regular Rhythm, Normal S1, Normal S2, Negative: Murmurs, Rubs Abdomen Exam: Positive: Normal bowel sounds, Soft, Negative: Tenderness, Hepatospenomegaly Extremity Exam: Positive: Normal pulses, Negative: Clubbing, Cyanosis, Edema Assessment /Plan Problems (1) Hematuria Status: Resolved Problem Text: ct showed bladder massm Ua cyto pos for malignant cells Had cysto and bladder tumor removal with clot evacuation on 08/08/16 to follow up with Dr Casas after discharge. (2) Hyperlipidemia Status: Chronic (3) Hypothyroid Status: Chronic (4) Diabetes Status: Chronic Problem Text: continue mixtard 70/30 insulin (5) MALIK (acute kidney injury) Status: Resolved (6) Fracture of neck of right humerus Status: Acute Problem Text: has a sling will get PT and OT evaluation. done recommending rehab. (7) Hypertension Status: Chronic Problem Text: BPs soft will stop losartan. Plan/VTE VTE Prophylaxis Ordered?: Yes Plan/Urinary Catheter Reason for insertion/continuin: Patient request Plan Therapy: PT, OT Anticipated Discharge: Sub Acute Rehab Disposition will need dc to rehab. VS, I&O, 24H, Fishbone Vital Signs/I&O Vital Signs Date Time Temp Pulse Resp B/P (MAP) Pulse Ox O2 Delivery O2 Flow Rate FiO2 08/10/16 09:25 110/64 08/10/16 06:00 98.9 75 18 92 Room Air 08/08/16 21:10 2 I&O- Last 24 Hours up to 6 AM 08/10/16 06:00 Intake Total 2250 ml Output Total 975 ml Balance 1275 ml Laboratory Data 24H LABS Laboratory Tests 2 08/09/16 11:36: Bedside Glucose (Misc Panel) 185H 08/09/16 16:41: Bedside Glucose (Misc Panel) 199H 08/09/16 20:03: Bedside Glucose (Misc Panel) 214H 08/10/16 05:09: White Blood Count 5.5, Red Blood Count 3.55L, Hemoglobin 11.1L, Hematocrit 33.4L , Mean Corpuscular Volume 94.2, Mean Corpuscular Hemoglobin 31.2, Mean Corpuscular Hemoglobin Concent 33.1, Red Cell Distribution Width 13.7, Platelet Count 297, Neutrophils (%) (Auto) 81.6H, Lymphocytes (%) (Auto) 6.3L, Monocytes (%) (Auto) 7.1H, Eosinophils (%) (Auto) 3.5H, Basophils (%) (Auto) 0.1, Neutrophils # (Auto) 4.5, Lymphocytes # (Auto) 0.4L, Monocytes # (Auto) 0.4, Eosinophils # (Auto) 0.2, Basophils # (Auto) 0.0, Large Unclassified Cells % 1.5 , Large Unclassified Cells # 0.1, Anion Gap 8, Glomerular Filtration Rate > 60.0 , Blood Urea Nitrogen 28H, Creatinine 1.20, Sodium Level 140, Potassium Level 4.1, Chloride Level 109H, Carbon Dioxide Level 23, Calcium Level 7.5L CBC/BMP Laboratory Tests 08/10/16 05:09 Red Blood Count 3.55 L, Mean Corpuscular Volume 94.2, Mean Corpuscular Hemoglobin 31.2, Mean Corpuscular Hemoglobin Concent 33.1, Red Cell Distribution Width 13.7, Neutrophils (%) (Auto) 81.6 H, Lymphocytes (%) (Auto) 6.3 L, Monocytes (%) (Auto) 7.1 H, Eosinophils (%) (Auto) 3.5 H, Basophils (%) ( Auto) 0.1, Neutrophils # (Auto) 4.5, Lymphocytes # (Auto) 0.4 L, Monocytes # ( Auto) 0.4, Eosinophils # (Auto) 0.2, Basophils # (Auto) 0.0, Calcium Level 7.5 L Microbiology Microbiology 08/05/16 Urine Culture - Final, Complete NATALIE COX MD Aug 10, 2016 10:10
[2016-08-10] MEDS: ACETAMINOPHEN TAB 650MG DOSE (2X325MG) PO PRN ×2 (13:03→20:59)
[2016-08-10 14:00] VITALS: BP 108/62
--- NOTE | 2016-08-10 15:20 | IPN ---
DATE: 08/10/2016 Mr. Vasquez is postoperative day #2 for cystoscopy, found to have changes consistent with radiation cystitis. We are still awaiting final pathology. His urine has been completely clear and the Beasley catheter was removed. At first, he felt like he had some difficulty urinating but now feels as though he is able to urinate, but we will check a postvoid residual. PHYSICAL EXAMINATION: He is afebrile. His blood pressure is 110/64 and his pulse is 75. He is lying in the hospital bed, comfortable except for his right arm. He has no costovertebral angle tenderness. His abdomen is soft and nontender. His extremities show no cyanosis, clubbing or edema. LABORATORY DATA: His white blood count is 5.5. Hemoglobin and hematocrit are 11.1/33.4. His BUN is 26 and his creatinine is 1.2. His PSA level came back at 1.86, which is elevated from 1.5, but I do not know how long ago that was. IMPRESSION: 1. Postop day #2 cystoscopy with fulguration and areas of biopsy and TUR for changes consistent with radiation cystitis, but pathology is still pending. 2. History of prostate cancer status post a radical prostatectomy and then radiation therapy for a rising PSA, now with PSA of 1.86, and he believes that his previous was 1.5. 3. Broken right arm in a patient who feels unable to be able to care for himself at home. 4. Multiple other medical problems, including diabetes, hypothyroidism and hyperlipidemia. PLAN: The patient most likely to be discharged to rehabilitation. Recommend the patient telling us when he is able to void, although he is completely incontinent, and we will check a postvoid residual afterwards to make sure that he is emptying his bladder. The patient will require follow up with urology. I spent at least 45 minutes with greater than 50% of this in [id number] consultation with the patient and his son today again discussing all of radiation cystitis is and that he may have some bleeding on and off in the future but what is considered significant bleeding and what is not. We discussed when he would want to come to the emergency room. We also discussed different therapies that may be available in the future, and I have had some good luck using Elm[place] at times to help rebuild the bladder lining. We will also await the final pathology.
[2016-08-10] MEDS: SIMVASTATIN 10 MG TAB PO SCH (20:59)
[2016-08-10 22:00] VITALS: BP 118/67
[2016-08-11] MEDS: ACETAMINOPHEN TAB 650MG DOSE (2X325MG) PO PRN ×2 (03:07→20:12)
[2016-08-11] MEDS: LEVOTHYROXINE 0.025 MG TAB (25 MCG) PO SCH (05:21)
[2016-08-11 06:00] VITALS: BP 141/78
[2016-08-11] MEDS: PHENAZOPYRIDINE 100 MG TAB PO SCH ×3 (09:10→20:12)
[2016-08-11] MEDS: SENOKOT S TAB PO SCH ×2 (09:11→20:12)
[2016-08-11] MEDS: HumuLIN (NovoLIN)70/30 INSULIN INJ PER UNIT SC SCH ×2 (09:11→17:25)
[2016-08-11] MEDS: BACTRIM 160MG/800MG DS TAB PO SCH ×2 (09:11→20:12)
[2016-08-11 10:50] LABS: MEAN CORPUSCULAR HEMOGLOBIN 31.2 pg (27.0-33.0); MEAN CORPUSCULAR HGB CONC 32.9 g/dl (32.0-36.5); MEAN CORPUSCULAR VOLUME 94.9 fl (80.0-96.0); RED CELL DISTRIBUTION WIDTH 13.5 % (11.5-14.5); WHITE BLOOD COUNT 4.1 K/mm3 (4.0-10.0)
[2016-08-11 11:13] LABS: ANION GAP 6 MEQ/L (8-16); BLOOD UREA NITROGEN 29 MG/DL (7-18); CALCIUM LEVEL 8.1 MG/DL (8.8-10.2); CARBON DIOXIDE LEVEL 26 MEQ/L (21-32); CHLORIDE LEVEL 108 MEQ/L (98-107); CREATININE FOR GFR 1.15 MG/DL (0.70-1.30); GLOMERULAR FILTRATION RATE > 60.0 (>35); GLUCOSE, FASTING 219 MG/DL (83-110); POTASSIUM SERUM 4.7 MEQ/L (3.5-5.1); SODIUM LEVEL 140 MEQ/L (136-145)
[2016-08-11 12:28] LABS: RBC, URINE 30-40 /hpf (0-3); WBC, URINE 15-20 /hpf (0-3)
[2016-08-11 12:29] LABS: BACTERIA, URINE LARGE AMOUNT; HYALINE CAST, URINE NONE SEEN /lpf (0-1); MICROSCOPIC EXAM PERFORMED
--- NOTE | 2016-08-11 16:49 | IPN ---
DATE: 08/11/2016 Mr. Vasquez was complaining of some burning and difficulty urinating last night, so a post-void residual was done and this was 200 mL. He was given the option of a Beasley catheter being placed or clean intermittent catheterization. He decided to be catheterized, but this was uncomfortable for him. This morning, we decided to replace a Beasley catheter for 1 week and we will give him a voiding trial at that time. His pathology is still pending. His urine has been clear. He is afebrile. His blood pressure is 141/78 and his pulse is 69. His respiratory rate is 19. He has no costovertebral angle tenderness and his abdomen is soft and nontender. He has no significant cyanosis, clubbing or edema. LABORATORY DATA: His white blood count is 4.1, hemoglobin and hematocrit is 11/33.3. His BUN is 29 and his creatinine is down to 1.15. IMPRESSION: 1. Postoperative day #3 cystoscopy and extensive fulguration with a transurethral resection of some abnormal tissue consistent with radiation cystitis but pathology is still pending. 2. History of prostate cancer, status post radical prostatectomy and then radiation therapy for rising prostate-specific antigen (PSA). His previous PSA was 1.5 and in the hospital it has now been 1.86. 3. Difficulty urinating last night, found to have post-void residuals of 200 mL in a patient who has been incontinent since his radical prostatectomy and who voids into a diaper. 4. Broken right arm in a patient who feels unable to be able to care for himself at home. 5. Multiple other medical problems, including diabetes, hypothyroidism, and hyperlipidemia. PLAN: 1. Replace a Beasley catheter, and the patient will come into the office in approximately 1 week for a fill and pull. 2. Send urine for microscopic urinalysis and culture and sensitivity today since he is having burning with urination. 3. Start Pyridium as needed. We will sign off on this patient. Please have him come into the office as an outpatient and call us if there is any other necessity.
[2016-08-11] MEDS: SIMVASTATIN 10 MG TAB PO SCH (20:12)
[2016-08-11 22:00] VITALS: BP 110/62
[2016-08-12] MEDS: LEVOTHYROXINE 0.025 MG TAB (25 MCG) PO SCH (05:18)
[2016-08-12 06:00] VITALS: BP 130/79
[2016-08-12] MEDS: PHENAZOPYRIDINE 100 MG TAB PO SCH (08:32)
[2016-08-12] MEDS: SENOKOT S TAB PO SCH (08:32)
[2016-08-12] MEDS: BACTRIM 160MG/800MG DS TAB PO SCH (08:32)
[2016-08-12] MEDS: HumuLIN (NovoLIN)70/30 INSULIN INJ PER UNIT SC SCH (08:32)
--- NOTE | 2016-08-12 09:02 | IPN ---
DATE: 08/12/2016 This is an 86-year-old gentleman who presented to the emergency room with hematuria. He has a history of prostate cancer diagnosed about 17 years ago. He was treated with radical prostatectomy and radiation and more recently has had hormonal treatment.. He presented to the emergency room shortly after [place]. He had a Beasley catheter placed at that time. CT scan showed diffusely thickened bladder suggestive of what was felt to be radiation cystitis. He was seen by urology. Dr. Casas took him to the OR on August 08 for cystoscopy, TURBT and fulguration. Biopsies of the bladder were taken. She felt the changes were consistent with radiation but also papillary type lesions were seen throughout which could represent transitional cell carcinoma. The bladder was fulgurated. About 60% of the bladder lining was involved with inflammatory changes with bleeding. He does have stage III chronic renal failure to begin with, that remains stable. His hemoglobin and hematocrit remains stable. Just preceding is arrival this time, he had fallen at home and broke his right humerus. This is being treated with immobilization. He does live alone and because of his physical impairment with this arm, he is going to find it difficult to live alone given his recent medical issues and advanced age. MEDICATIONS: He is currently on: - Pyridium 100 mg three times daily - Bactrim DS - magnesium - Senokot S - Synthroid 0.025 mg - simvastatin 10 mg - Humulin 70/30 15 units twice daily SOCIAL HISTORY: She is a remote smoker. No alcohol. Lives alone. ALLERGIES: PENICILLIN. PAST MEDICAL HISTORY: Diabetes with neuropathy. He does have special shoes he wears. 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 He has renal cyst. Radiation cystitis. Prostate cancer. TURP. Hypothyroid. Hyperlipidemia. Possible bladder tumor as discussed . Cataract surgery. Cholelithiasis. Recent issues with urinary retention and hematuria. Beasley catheter has been removed and he states he is voiding fine at present. FAMILY HISTORY: Irrelevant at age 86. REVIEW OF SYSTEMS: Significant only for the recent symptoms. He does have his visual issues with wet macular degeneration as discussed as well. Also has had recent fracture of his right arm. This seems to be causing him minimal discomfort at present. PHYSICAL EXAMINATION: Vital signs are stable as recorded. HEENT: Is unremarkable. He does wear dentures. He has multiple seborrheic keratoses. Neck is unremarkable. No carotid bruits. No JVD. Heart: Regular with a short systolic murmur. Chest was clear. Abdomen: Obese, otherwise unremarkable. Extremities are warm peripherally. No clubbing, cyanosis or edema. He is wearing NICOLE stockings. Neuro: He does have diabetic neuropathy. IMPRESSION/PLAN: 1. Hematuria/urinary obstruction. History of radiation cystitis, possible bladder tumor as discussed. 2. History of prostate cancer. 3. Diabetes with neuropathy. 4. Macular degeneration. 5. Chronic renal failure stage III. 6. Hypothyroid. He is on a small dose of Synthroid. 7. Hyperlipidemia. He continues on his statin of moderate intensity but at this age, that would be acceptable. 8. Fracture right humerus. PLAN: Plan is for rehab with eventual discharge home planned.
[2016-08-12] MEDS ORDERED: HUMU70IN SC (09:09)
[2016-08-12] MEDS ORDERED: PHEN1TAB80 PO (09:09)
[2016-08-12] MEDS ORDERED: SMZ-800T PO (09:09)
--- NOTE | 2016-08-12 11:03 | DSES ---
DATE OF ADMISSION: 08/06/2016 DATE OF DISCHARGE: REASON FOR ADMISSION: Hematuria. FINAL DIAGNOSES: 1. Hematuria secondary to bladder mass. 2. Acute kidney injury. 3. Diabetes. 4. Hypothyroidism. 5. Hyperlipidemia. 6. Fracture of the neck of the right humerus. 7. Hypertension. 8. Benign prostatic hypertrophy (BPH). 9. Prostate cancer status post prostatectomy and radiation. HISTORY OF PRESENT ILLNESS: The patient is an 86-year-old male with past medical history significant for diabetes, hypertension, hypothyroidism, hyperlipidemia, and BPH who presented to the emergency room with painless hematuria that started at around 5:00 a.m., the second episode this month. The patient does not have a primary care provider here. He moved up from [place] in the beginning of July. He had an episode of hematuria on 07/12/2016 and he presented to the emergency room. CT scan of the pelvis with IV contrast was done at that time which showed a thickened bladder suggestive of mild cystitis. The patient had a Beasley placed at this time and he was discharged home from the emergency room. Subsequently, he had a fall and sustained an acute fracture of his right humerus. He was seen by Dr. Cantor. No surgical intervention was recommended at that time, only immobilization. He lives at home. He lives with son in [place] who has been helping him out. The patient presented back to the emergency room around 3:00 a.m. He had normal urine without any blood. At around 05:00 a.m., he went to the bathroom and had hematuria. He noted some incontinence of urine. The patient had history of prostate surgery a few years ago. He used 3-4 adult diapers per day. He saw gushes of blood in his diapers and presented to the emergency room. This time, CT scan was ordered and showed a 3.2 cm bladder mass. The patient was admitted. Dr. Casas from urology was consulted. She had seen the patient in the emergency room and taken him back to the operating room (OR) for cystoscopy and biopsy on 08/08/2016. suggested discharging the patient home with followup with Urology Clinic. However, after the procedure, the patient was anxious and did not feel like he could go back home given his broken arm and recurrent hematuria. At that time, he stayed and was admitted under the hospitalist service for observation. A three-way Beasley catheter was placed. HOSPITAL COURSE: Physical therapy and occupational therapy were consulted. Dr. Casas continued to see the patient. She felt that the gross hematuria may be related to the bladder cancer as well as the history of prostate cancer with radical prostatectomy and radiation therapy. The patient continued to work with physical therapy (PT) and occupational therapy (OT) with immobilization of the right arm. Once a bed was found at [facility] for rehabilitation, he was discharged under the care of Dr. Lea. DISCHARGE INSTRUCTIONS: The patient is to follow up with primary care provider in [address] Casas in the clinic in 1 week. He was started on Pyridium. He did not want the Beasley catheter to be put back in, so he was discharged without a Beasley. Diet regular. Activities as tolerated. DISCHARGE MEDICATIONS (include): - bacitracin one dose topically applied to right arm - insulin 70/30 50 units subcutaneously twice a day - Synthroid 25 mcg by mouth daily - multivitamin 1 tablet by mouth at bedtime - Pyridium 100 mg by mouth three times a day - simvastatin 10 mg at bedtime - Bactrim 1 tablet by mouth twice a day for six more days CONSULTATION: Urology - Dr. Casas PROCEDURES DONE DURING HOSPITALIZATION: The patient had cystoscopy with transurethral resection of bladder tumor (TURBT) and fulguration with biopsies taken and sent for pathology. DISCHARGE CONDITION: Stable.
== END 2016-08-12 10:58 | DRG 669 ==
LOC: M ED 07:08 → M ED INP 11:46 → M MSPAV 13:59 → OBSVTOIN 08-06 10:51
PROVIDERS: ADMIT Internal Medicine Nephrology; ATTEND Internal Medicine
PROC: 0TBB8ZX Excision of Bladder, Via Natural or Artificial Opening Endoscopic, Diagnostic (ICD-10-PCS; principal; 2016-08-08 16:00)
DX: C67.4 Malignant neoplasm of posterior wall of bladder (principal); R45.851 Suicidal ideations; N17.9 Acute kidney failure, unspecified; N30.41 Irradiation cystitis with hematuria; N18.3 Chronic kidney disease, stage 3 (moderate); E03.9 Hypothyroidism, unspecified; E78.5 Hyperlipidemia, unspecified; I12.9 Hypertensive chronic kidney disease with stage 1 through stage 4 chronic kidney disease, or unspecified chronic kidney disease; N40.0 Benign prostatic hyperplasia without lower urinary tract symptoms; Z85.46 Personal history of malignant neoplasm of prostate; Z79.899 Other long term (current) drug therapy; Z79.4 Long term (current) use of insulin; Z87.891 Personal history of nicotine dependence; E11.40 Type 2 diabetes mellitus with diabetic neuropathy, unspecified; H35.3290 Exudative age-related macular degeneration, unspecified eye, stage unspecified; R31.0 Gross hematuria

== ENCOUNTER → 2016-08-13 | Outpatient (REF) ==
[~2016-08-13] MED LIST changes: +BACI50OI TOP; +HUMU70IN SC; +LOSA50TA20 PO; +NOVO70IN SC; +PHEN1TAB80 PO; +SIMV10TA2 PO; +SMZ-800T PO; +VITMTA PO
[2016-08-13 07:38] LABS: MEAN CORPUSCULAR HEMOGLOBIN 30.6 pg (27.0-33.0); MEAN CORPUSCULAR HGB CONC 32.8 g/dl (32.0-36.5); MEAN CORPUSCULAR VOLUME 93.3 fl (80.0-96.0); RED CELL DISTRIBUTION WIDTH 13.9 % (11.5-14.5); WHITE BLOOD COUNT 4.6 K/mm3 (4.0-10.0)
[2016-08-13 08:06] LABS: ANION GAP 6 MEQ/L (8-16); BLOOD UREA NITROGEN 23 MG/DL (7-18); CALCIUM LEVEL 8.1 MG/DL (8.8-10.2); CARBON DIOXIDE LEVEL 26 MEQ/L (21-32); CHLORIDE LEVEL 107 MEQ/L (98-107); CREATININE FOR GFR 1.16 MG/DL (0.70-1.30); GLOMERULAR FILTRATION RATE > 60.0 (>35); GLUCOSE, FASTING 114 MG/DL (83-110); SODIUM LEVEL 139 MEQ/L (136-145)
== END ==
LOC: SKLAB2 07:00
DX: N18.9 Chronic kidney disease, unspecified (principal)

== ENCOUNTER → 2016-08-18 | Outpatient (REF) ==
[2016-08-18 09:28] LABS: CALCIUM LEVEL 8.3 MG/DL (8.8-10.2); CREATININE FOR GFR 1.42 MG/DL (0.70-1.30); GLOMERULAR FILTRATION RATE 50.1 (>35); POTASSIUM SERUM 4.7 MEQ/L (3.5-5.1)
== END ==
LOC: SKLAB2 07:00
DX: I10 Essential (primary) hypertension (principal)

== ENCOUNTER → 2016-08-25 | Outpatient (REF) ==
[2016-08-25 10:28] LABS: CALCIUM LEVEL 8.6 MG/DL (8.8-10.2); CREATININE FOR GFR 1.23 MG/DL (0.70-1.30); GLOMERULAR FILTRATION RATE 59.1 (>35); POTASSIUM SERUM 4.4 MEQ/L (3.5-5.1)
[2016-08-25 12:54] LABS: ALBUMIN 2.8 GM/DL (3.2-5.2); ALBUMIN/GLOBULIN RATIO 0.88 (1.00-1.93); BILIRUBIN,DIRECT 0.2 MG/DL (0.0-0.2); BILIRUBIN,TOTAL 0.5 MG/DL (0.2-1.0)
== END ==
LOC: SKLAB2 08:00
DX: N18.9 Chronic kidney disease, unspecified (principal)

== ENCOUNTER → 2016-09-01 | Outpatient (REF) ==
[2016-09-01 14:43] LABS: CALCIUM LEVEL 8.6 MG/DL (8.8-10.2); CREATININE FOR GFR 1.28 MG/DL (0.70-1.30); GLOMERULAR FILTRATION RATE 56.5 (>35); POTASSIUM SERUM 4.3 MEQ/L (3.5-5.1)
== END ==
LOC: SKLAB2 07:57
DX: N18.3 Chronic kidney disease, stage 3 (moderate) (principal); Z79.899 Other long term (current) drug therapy

== ENCOUNTER 2016-10-09 02:02 | Emergency (ER) | payer MEDICARE ==
[~2016-10-09 02:02] MED LIST changes: +NOVO1INJ4 SC; -NOVO70IN SC; +PHEN-500 PO; -PHEN1TAB80 PO; -SMZ-800T PO; +SULF1TAB23 PO
[2016-10-09] MEDS ORDERED: CIPR-249 PO (04:12)
[2016-10-09] MEDS ORDERED: CIPROFLOXACIN 500 MG TAB PO ONE (04:15)
[2016-10-09 04:39] VITALS: BP 138/82
== END 2016-10-09 04:40 | disposition home or self-care (01) ==
LOC: M ED 02:02
DX: R31.9 Hematuria, unspecified (principal); R33.9 Retention of urine, unspecified; Z87.891 Personal history of nicotine dependence

== ENCOUNTER 2016-10-10 12:46 | Emergency (ER) | payer MEDICARE ==
[~2016-10-10] VITALS: Ht 162.6 cm; Wt 86.8 kg
[~2016-10-10 12:46] MED LIST changes: +CIPR-249 PO
[2016-10-10 14:45] VITALS: BP 135/75
== END 2016-10-10 14:49 | disposition home or self-care (01) ==
LOC: M ED 12:46
DX: T83.098A Other mechanical complication of other urinary catheter, initial encounter (principal)

== ENCOUNTER 2016-12-07 12:36 | Emergency (ER) | payer MEDICARE ==
[~2016-12-07] VITALS: Ht 162.6 cm; Wt 86.4 kg
[2016-12-07 13:37] LABS: MICROSCOPIC INDICATED? MAN YES (NO)
[2016-12-07 13:39] LABS: BACTERIA, URINE SMALL AMOUNT; HYALINE CAST, URINE NONE SEEN /lpf (0-1); MICROSCOPIC EXAM PERFORMED; RBC, URINE TNTC /hpf (0-3); SQUAMOUS EPITHELIAL CELL URINE NONE SEEN /hpf (SMALL AMT)
[2016-12-07 14:44] VITALS: BP 144/85
[2016-12-07] MEDS ORDERED: MACR100C43 PO (23:38)
[2016-12-08] MEDS ORDERED: TORS20TA2 PO (04:59)
[2016-12-08] MEDS ORDERED: RENATAB5 PO (04:59)
[2016-12-08] MEDS ORDERED: HUMU70IN SC (04:59)
== END 2016-12-07 14:47 | disposition home or self-care (01) ==
LOC: M ED 12:36
DX: R33.0 Drug induced retention of urine (principal); R31.0 Gross hematuria; C61 Malignant neoplasm of prostate; E11.9 Type 2 diabetes mellitus without complications; I10 Essential (primary) hypertension; Z92.3 Personal history of irradiation; Z79.899 Other long term (current) drug therapy; Z79.4 Long term (current) use of insulin; Z88.0 Allergy status to penicillin; Z87.891 Personal history of nicotine dependence

== ENCOUNTER 2016-12-07 17:38 | Emergency (ER) | payer MEDICARE ==
[~2016-12-07] VITALS: Ht 162.6 cm; Wt 86.4 kg
[2016-12-07] MEDS ORDERED: LIDOCAINE 2% JELLY 30 ML TOP ONE (20:15)
--- NOTE | 2016-12-07 21:20 | REPUSA ---
Clinical history: blood clots. Findings: The urinary bladder appears unremarkable, measuring 6.1 x 8.2 x 7.1 cm. No urinary bladder masses are seen. The bladder demonstrates minimal debris, without any discrete blood clots. No free f luid is appreciated. Impression: No discrete urinary bladder blood clots or masses identified. Minimal debris noted.
[2016-12-07] MEDS ORDERED: PHENAZOPYRIDINE 100 MG TAB PO ONE (21:30)
[2016-12-07 23:38] VITALS: BP 127/79
[2016-12-07] MEDS ORDERED: MACR100C43 PO (23:38)
[2016-12-08] MEDS ORDERED: TORS20TA2 PO (04:59)
[2016-12-08] MEDS ORDERED: RENATAB5 PO (04:59)
[2016-12-08] MEDS ORDERED: HUMU70IN SC (04:59)
== END 2016-12-07 23:46 | disposition home or self-care (01) ==
LOC: M ED 17:38
DX: N30.81 Other cystitis with hematuria (principal); T83.098A Other mechanical complication of other urinary catheter, initial encounter; E10.9 Type 1 diabetes mellitus without complications; E03.9 Hypothyroidism, unspecified; E78.6 Lipoprotein deficiency; Z79.4 Long term (current) use of insulin; Z79.899 Other long term (current) drug therapy; Z88.0 Allergy status to penicillin

== ENCOUNTER 2016-12-08 03:31 | Inpatient (IN) | payer MEDICARE ==
[~2016-12-08] VITALS: Ht 162.6 cm; Wt 85.6 kg
[~2016-12-08 03:31] MED LIST changes: +MACR100C43 PO
[2016-12-08] MEDS ORDERED: HUMU70IN SC (04:59)
[2016-12-08] MEDS ORDERED: RENATAB5 PO (04:59)
[2016-12-08] MEDS ORDERED: TORS20TA2 PO (04:59)
[2016-12-08 05:01] LABS: BASO % 0.2 % (0.0-1.0); EOS % 0.4 % (0.0-3.0); IMMATURE GRANULOCYTE % 0.4 % (0-0); LYMPH # 0.3 10^3/uL (1.5-4.5); LYMPH % 3.7 % (24.0-44.0); MEAN CORPUSCULAR HEMOGLOBIN 29.1 pg (27.0-33.0); MEAN CORPUSCULAR HGB CONC 32.1 g/dl (32.0-36.5); MEAN CORPUSCULAR VOLUME 90.7 fl (80.0-96.0); MONO % 11.3 % (0.0-5.0); NEUTROPHILS # 7.1 10^3/uL (1.8-7.7); PLATELET COUNT, AUTOMATED 224 10^3/uL (150-450); RED CELL DISTRIBUTION WIDTH 15.4 % (11.5-14.5); WHITE BLOOD COUNT 8.4 10^3/uL (4.0-10.0)
[2016-12-08 05:12] LABS: INR 1.05
[2016-12-08] MEDS ORDERED: DEXTROSE 50% 50 ML SYRINGE IV PRN (05:15)
[2016-12-08] MEDS ORDERED: ONDANSETRON 4MG/2ML VIAL (J2405) IV PRN (05:15)
[2016-12-08] MEDS ORDERED: GLUCOSE 4 GM CHEW TABLET PO PRN (05:15)
[2016-12-08] MEDS ORDERED: ACETAMINOPHEN TAB 650MG DOSE (2X325MG) PO PRN (05:15)
[2016-12-08] MEDS ORDERED: GLUCAGON FOR INJ 1 MG VIAL (J1610) SC PRN (05:15)
[2016-12-08 05:19] LABS: CALCIUM LEVEL 8.8 MG/DL (8.8-10.2); CREATININE FOR GFR 1.72 MG/DL (0.70-1.30); GLOMERULAR FILTRATION RATE 40.1 (>35); POTASSIUM SERUM 4.4 MEQ/L (3.5-5.1)
[2016-12-08 05:51] LABS: THYROXINE (T4) 8.3 UG/DL (4.5-12.0)
[2016-12-08] MEDS: NS 1,000 ML IV SCH ×2 (06:15→17:34)
--- NOTE | 2016-12-08 06:44 | HPE ---
DATE OF ADMISSION: 12/08/2016 PRIMARY CARE PROVIDER: Junaid Ma UROLOGIST: Dr. Casas. Will consult Dr. Nicole at 6:00 a.m. CHIEF COMPLAINT: Hematuria. 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 He follows with Dr. Casas. He initially presented to the hospital yesterday with hematuria and bladder distention and suprapubic discomfort. Beasley catheter was placed. The patient subsequently returned to the hospital with a plugged Beasley catheter also yesterday. He was placed on continuous bladder irrigation. When patient cleared up, patient was sent home. Earlier this morning, the patient returned to the hospital again with worsening hematuria again. Subsequently, request was made to admit the patient. The patient was placed on continuous bladder irrigation. Currently, denies any fever or chills, chest pain or pressure, or discomfort, shortness of breath, or abdominal pain. The patient has chronic trace edema bilaterally of the lower extremities and is on diuretics. He is not on any blood thinners, aspirin or Plavix. No history of stroke or coronary arterial disease. The patient lives alone at home with a son living in [place]. ALLERGIES: PENICILLIN. PAST MEDICAL HISTORY: 1. 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 2. Diabetes type 2, insulin dependent. 3. Hypertension. 4. Hypothyroidism. 5. Dyslipidemia. 6. BPH. PAST SURGICAL HISTORY: 1. Transurethral resection of prostate. 2. Cataract surgery. SOCIAL HISTORY: The patient quit smoking 25 years ago. Does not drink alcoholic beverages. Lives at home by himself. Does not need any assistance with ambulation. Son lives in [place]. FAMILY HISTORY: Mother with breast cancer, passed at age 83. REVIEW OF SYSTEMS: Reported hematuria. Initially had some suprapubic discomfort, but currently resolved when the patient is making urine. All other review of systems are negative. HOME MEDICATIONS: - Humulin 70/30 32 units subcutaneous twice a day - Synthroid 25 mcg by mouth daily - multivitamin one tablet by mouth daily - Michelle-Juanjose one tablet by mouth twice a day - Zocor 10 mg by mouth at bedtime - torsemide 20 mg by mouth twice a day PHYSICAL EXAMINATION: VITAL SIGNS: Temperature 95.9, pulse 108, respirations 20, blood pressure 135/66, pulse oximetry 96% on room air. GENERAL: Patient alert and oriented times three in no acute distress. HEENT: Normocephalic, atraumatic. PULMONARY: Bilateral clear to auscultation. CARDIAC: Regular rate and rhythm. Normal S1, S2. ABDOMEN: Soft. Nontender. Positive bowel sounds. GENITOURINARY: Fresh blood around the genital area. Beasley catheter in place undergoing continuous bladder irrigation with pinkish fluids. LABORATORY: WBC 8.4, hemoglobin/hematocrit (H/H) 13.4/41.8, platelets 224. Chemistry: Sodium 140, potassium 4.4, chloride 104, bicarbonate 29, BUN 46, creatinine 1.7. Bladder ultrasound shows no discrete bladder blood clots or mass identified, minimal debris is noted. ASSESSMENT AND PLAN: This is an 86-year-old male patient with underlying medical history of prostate cancer with transurethral resection of the prostate and radiation in 2006 as well as hypertension, type 2 diabetes, hypothyroidism, dyslipidemia, and BPH, also with questionable high grade urothelial cell carcinoma on pathology who presented with recurrent hematuria and acute on chronic renal insufficiency. PROBLEMS: 1. Acute on chronic renal hematuria undergoing continuous bladder irrigation. Will consult urology and followup H/H. Ultrasound of bladder appreciated. Will get ultrasound of kidneys. 2. Acute on chronic renal insufficiency, probably related to hematuria. Will get ultrasound renal to assess for hydro. IV fluids. Holding torsemide. Strict ins and outs and daily weight. 3. Type 2 diabetes. Insulin Levemir twice a day, which is a reduction from patient's home insulin with meal time protocol. Consistent carbohydrate diet. Followup fingersticks. 4. Hypothyroidism. Followup thyroid panel. Continue Synthroid. 5. Hypertension. Monitor blood pressure. Torsemide on hold given elevated creatinine. 6. Dyslipidemia. Continue statin. 7. BPH. Followup urology. 8. Deep vein thrombosis (DVT) prophylaxis. Sequential compression device given active hematuria. DISPOSITION: Pending urology followup and clinical improvement.
[2016-12-08 06:45] VITALS: BP 155/92
--- NOTE | 2016-12-08 07:00 | REPUSA ---
CLINICAL HISTORY: Acute renal failure on top of chronic renal disease. TECHNIQUE: Realtime sonographic images were obtained in multiple projections. COMMENTS: Comparison to the prior exam on 12/07/2016. The right kidney measures 11.8x6.1x7.6cm and the left kidney measures 13.4x6.6x7.3 cm. bilateral inc reased renal echogenicity. Both kidneys are free of hydronephrosis. Bilateral renal cysts are noted the largest 4 cysts measured as following: Midportion right kidney 3 cm. Midportion right kidney 2.8 cm. Lower portion right kidney 4.9 cm. Lower portion right kidney 5.7 cm. Lateral portion left kidney 4 cm. Midportion left kidney 2.3 cm. Lower portion left kidney 2.7 cm. Lower portion left kidney 5.8 cm. Beasley catheter was not seen. There is no evidence of solid mass. There is no perinephric fluid. There is no renal calculus. IMPRESSION: Bilateral renal cysts. No hydronephrosis or calculi. Increased renal echogenicity suggestive of parenchymal disease. Thank you for your kind referral of this patient.
[2016-12-08] MEDS: LEVOTHYROXINE 25MCG TABLET (0.025MG) PO SCH (07:03)
[2016-12-08] MEDS: SENOKOT S TAB PO SCH ×2 (07:49→21:19)
[2016-12-08] MEDS: HumaLOG INSULIN (NovoLOG) PER UNIT SC SCH ×3 (07:50→17:06)
[2016-12-08] MEDS: LEVEMIR (INSULIN DETEMIR) 1 UNITS/0.01ML SC SCH ×2 (07:51→21:20)
[2016-12-08] MEDS ORDERED: TORSEMIDE 20 MG TAB PO SCH (09:00)
[2016-12-08 14:00] VITALS: BP 149/87
--- NOTE | 2016-12-08 15:10 | IPN ---
DATE: 12/08/2016 ATTENDING PHYSICIAN: Dr. Reed PRIMARY CARE PROVIDER: Quinten Ma/Dr. Ovalle Debra HISTORY: Vini was admitted with hematuria. He is followed by the urologist. 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 He was admitted with gross hematuria. He has irrigation catheter in, which is running clear. Urology has been consulted per Dr. Quick. Dr. Nicole will be in later today. PHYSICAL EXAMINATION: 152/92, pulse 85, respiratory rate 18, 92% oxygen saturation. GENERAL APPEARANCE: He is lying in bed. No distress. LUNGS: Clear. HEART: Regular rhythm. ABDOMEN: Soft, nontender. EXTREMITIES: No peripheral edema. LABORATORY DATA: Hemoglobin is stable at 13.2. Creatinine on admission was 1.7, his baseline is around 1.2. IMPRESSION: 1. Gross hematuria. Waiting for urology to see the patient. He has an irrigating catheter in and urine is now clear with just some thin clots. 2. Acute renal failure. He is being hydrated. We will followup renal function ordered for tomorrow. 3. Diabetes. He is on a reduced dose of Levemir sliding scale insulin with coverage. 4. Hyperlipidemia. Continue his simvastatin 10 mg daily. 5. Hypothyroidism. Continue levothyroxine [address] Pichardo will be assuming his care tomorrow.
[2016-12-08] MEDS ORDERED: HumaLOG INSULIN (NovoLOG) PER UNIT SC SCH (21:00)
[2016-12-08] MEDS ORDERED: MULTIVITAMINS/MINERALS THERAP 1 TAB PO SCH (21:00)
[2016-12-08] MEDS ORDERED: SIMVASTATIN 10 MG TAB PO SCH (21:00)
[2016-12-08 22:00] VITALS: BP 148/83
[2016-12-09] MEDS: NS 1,000 ML IV SCH (05:33)
[2016-12-09] MEDS: LEVOTHYROXINE 25MCG TABLET (0.025MG) PO SCH (05:33)
[2016-12-09 06:00] VITALS: BP 149/71
[2016-12-09 06:17] LABS: MEAN CORPUSCULAR HEMOGLOBIN 29.2 pg (27.0-33.0); MEAN CORPUSCULAR VOLUME 91.2 fl (80.0-96.0); RED CELL DISTRIBUTION WIDTH 15.3 % (11.5-14.5); WHITE BLOOD COUNT 6.8 10^3/uL (4.0-10.0)
[2016-12-09 06:33] LABS: ANION GAP 5 MEQ/L (8-16); BLOOD UREA NITROGEN 30 MG/DL (7-18); CALCIUM LEVEL 8.2 MG/DL (8.8-10.2); CARBON DIOXIDE LEVEL 28 MEQ/L (21-32); CHLORIDE LEVEL 111 MEQ/L (98-107); CREATININE FOR GFR 1.19 MG/DL (0.70-1.30); GLOMERULAR FILTRATION RATE > 60.0 (>35); GLUCOSE, FASTING 116 MG/DL (83-110); MAGNESIUM LEVEL 2.2 MG/DL (1.8-2.4); POTASSIUM SERUM 4.1 MEQ/L (3.5-5.1); SODIUM LEVEL 144 MEQ/L (136-145)
[2016-12-09] MEDS: HumaLOG INSULIN (NovoLOG) PER UNIT SC SCH ×2 (08:20→12:22)
[2016-12-09 09:09] VITALS: BP 133/68
[2016-12-09] MEDS: SENOKOT S TAB PO SCH (09:36)
[2016-12-09] MEDS: LEVEMIR (INSULIN DETEMIR) 1 UNITS/0.01ML SC SCH (09:36)
--- NOTE | 2016-12-09 14:26 | DS.PDOC ---
Discharge Summary General Date of Admission Dec 08, 2016 at 05:11 Date of Discharge 12/09/16 Discharge Summary PROCEDURES PERFORMED DURING STAY: None. ADMITTING/DISCHARGE DIAGNOSES: 1. . Hematuria 2. . Urothelial cancer 3. . History of prostate cancer status post TURP COMPLICATIONS/CHIEF COMPLAINT: Hematuria. HISTORY OF PRESENT ILLNESS: . 86-year-old male with past medical history of prostate cancer s/p TURP, urothelial carcinoma, diabetes, hypertension, hypothyroidism, and dyslipidemia presented to the ER with a chief complaint of hematuria and bladder distention with associated suprapubic discomfort. The patient had a Moreno catheter placed, but subsequently returned to the hospital with a clogged Moreno catheter. The patient was placed on continuous bladder irrigation, however the patient's hematuria returned and worsened. The patient was subsequently admitted to the hospitalist service for further evaluation and management. During hospitalization, the patient was continued on continuous bladder irrigation. The patient was also provided with IV fluid hydration for the bump in his serum creatinine. The patient's hematuria had cleared up to a normal yellow/clear color. In addition, the patient has remained hemodynamically stable. A consult was placed for the patient's urologist Dr. Nicole. He recommended that the patient have the moreno catheter removed for a voiding trial , and to follow-up as an outpatient. The patient's moreno catheter was removed this AM, and the patient did void clear/yellow colored urine. At this time, the patient states that he is feeling much better and is eager to return home. The patient has been cleared to return home by physical therapy. The patient has been advised to follow-up with his PCP within 7 days, in addition, the patient is also to follow up with urology within 2 weeks. He has been consulted to return to the ER for any acute emergencies. DISCHARGE MEDICATIONS: Please see below. ALLERGIES: Please see below. PHYSICAL EXAMINATION ON DISCHARGE: VITAL SIGNS: Please see below. GENERAL: Awake, alert, in no acute distress HEENT: Normocephalic, atraumatic NECK: No JVD CARDIOVASCULAR EXAMINATION: Normal rate, normal rhythm RESPIRATORY EXAMINATION: Clear to auscultation bilaterally ABDOMINAL EXAMINATION: Soft, nontender, nondistended EXTREMITIES: No erythema, no tenderness LABORATORY DATA: Please see below. IMAGING: Clinical history: blood clots. Findings: The urinary bladder appears unremarkable, measuring 6.1 x 8.2 x 7.1 cm. No urinary bladder masses are seen. The bladder demonstrates minimal debris , without any discrete blood clots. No free fluid is appreciated. Impression: No discrete urinary bladder blood clots or masses identified. Minimal debris noted. CLINICAL HISTORY: Acute renal failure on top of chronic renal disease. TECHNIQUE: Realtime sonographic images were obtained in multiple projections. COMMENTS: Comparison to the prior exam on 12/07/2016. The right kidney measures 11.8x6.1x7.6cm and the left kidney measures 13.4x6.6x7.3 cm. bilateral increased renal echogenicity. Both kidneys are free of hydronephrosis. Bilateral renal cysts are noted the largest 4 cysts measured as following: Midportion right kidney 3 cm. Midportion right kidney 2.8 cm. Lower portion right kidney 4.9 cm. Lower portion right kidney 5.7 cm. Lateral portion left kidney 4 cm. Midportion left kidney 2.3 cm. Lower portion left kidney 2.7 cm. Lower portion left kidney 5.8 cm. Moreno catheter was not seen. There is no evidence of solid mass. There is no perinephric fluid. There is no renal calculus. IMPRESSION: Bilateral renal cysts. No hydronephrosis or calculi. Increased renal echogenicity suggestive of parenchymal disease. Thank you for your kind referral of this patient. PROGNOSIS: Long-term prognosis poor ACTIVITY: As tolerated. DIET: . 2 g low sodium diet DISCHARGE PLAN: DISPOSITION: . Home DISCHARGE INSTRUCTIONS: 1. . Follow with primary care physician within 7 days 2. . Follow-up with urology within 2 weeks 3. . Return to the ER for any acute emergencies DISCHARGE CONDITION: Stable. TIME SPENT ON DISCHARGE: Greater than 30 minutes. Vital Signs/I&Os Vital Signs Date Time Temp Pulse Resp B/P (MAP) Pulse Ox O2 Delivery O2 Flow Rate FiO2 12/09/16 09:09 98.1 82 18 133/68 (89) 93 Room Air I&O- Last 24 Hours up to 6 AM 12/10/16 05:59 Intake Total 2250 ml Output Total 550 ml Balance 1700 ml Laboratory Data Labs 24H Laboratory Tests 2 12/08/16 16:46: Bedside Glucose (Misc Panel) 225H 12/08/16 20:31: Bedside Glucose (Misc Panel) 212H 12/09/16 05:45: Anion Gap 5L, Glomerular Filtration Rate > 60.0, Blood Urea Nitrogen 30H, Creatinine 1.19, Sodium Level 144, Potassium Level 4.1, Chloride Level 111H, Carbon Dioxide Level 28, Calcium Level 8.2L, Magnesium Level 2.2 12/09/16 11:36: Bedside Glucose (Misc Panel) 150H CBC/BMP Laboratory Tests 12/09/16 05:45 Red Blood Count 4.08 L, Mean Corpuscular Volume 91.2, Mean Corpuscular Hemoglobin 29.2, Mean Corpuscular Hemoglobin Concent 32.0, Red Cell Distribution Width 15.3 H, Calcium Level 8.2 L 12/09/16 12:03 FSBS Laboratory Tests Test 12/08/16 16:46 12/08/16 20:31 12/09/16 11:36 Range/Units Bedside Glucose (Misc Panel) 225 212 150 83-110 MG/DL Discharge Medications Scheduled (Michelle-Juanjose) 1 Tab Tab, 1 TAB PO BID, (Reported) Insulin Human Isophan/Regular (Humulin 70/30 (70-30) 100 Unit/ml) 1 Inj Inj, 32 UNITS SC BID, (Reported) Levothyroxine Sodium (Synthroid) 25 Mcg Tab, 25 MCG PO DAILY, (Reported) Multivitamins *[facility] STOCKED* (Thera M Plus *[facility] STOCKED*) 1 Tab Tab, 1 TAB PO QHS , (Reported) Simvastatin (Simvastatin) 10 Mg Tab, 10 MG PO QHS, (Reported) Torsemide (Torsemide) 20 Mg Tab, 20 MG PO BID, (Reported) Allergies Coded Allergies: Penicillins (Verified Adverse Reaction, Mild, "didn't agree with me", ) ANDRÉS THOMPSON MD Dec 09, 2016 14:26
--- NOTE | 2016-12-09 20:08 | ECGEPIP ---
Stationary ECG Study [facility] Test Date: 2016-12-08 Pat Name: Maxx MCGUIRE Department: Room: [place] [address] Gender: M Tie Inspector: DARIEL : 1930 Requested By: KATHARINE DENT Order Number: [id number] Reading MD: Darryl Marie Measurements Intervals [place] Rate: 73 P: 95 RI: 209 QRS: -32 QRSD: 102 T: 34 QT: 326 QTc: 361 Interpretive Statements SINUS RHYTHM WITH SINUS ARRHYTHMIA MARKED LEFT AXIS DEVIATION NONSPECIFIC T-WAVE ABNORMALITY NO PRIOR Electronically Signed On 12-09-2016 20:07:43 EDT by Darryl Marie
== END 2016-12-09 14:30 | disposition home or self-care (01) | DRG 696 ==
LOC: M ED 03:31 → M ED INP 05:11 → M MSPAV 06:40
PROVIDERS: ADMIT Hospitalist; ATTEND Internal Medicine
DX: R31.9 Hematuria, unspecified (principal); C68.0 Malignant neoplasm of urethra; E11.9 Type 2 diabetes mellitus without complications; I10 Essential (primary) hypertension; E03.9 Hypothyroidism, unspecified; E78.5 Hyperlipidemia, unspecified; N28.1 Cyst of kidney, acquired; Z79.899 Other long term (current) drug therapy; Z88.0 Allergy status to penicillin; Z79.4 Long term (current) use of insulin; Z85.46 Personal history of malignant neoplasm of prostate; Z87.891 Personal history of nicotine dependence; N40.0 Benign prostatic hyperplasia without lower urinary tract symptoms; N17.9 Acute kidney failure, unspecified

== ENCOUNTER 2017-01-28 23:32 | Emergency (ER) | payer MEDICARE ==
[~2017-01-28] VITALS: Ht 162.6 cm; Wt 88.6 kg
[2017-01-28 23:32] VITALS: BP 168/100
[~2017-01-28 23:32] MED LIST changes: +RENATAB5 PO; +TORS20TA2 PO
[2017-01-29] MEDS ORDERED: NITR100C39 PO (20:40)
== END 2017-01-29 00:56 | disposition left against medical advice (07) ==
LOC: M ED 23:32
DX: R33.9 Retention of urine, unspecified (principal); R31.9 Hematuria, unspecified; E11.9 Type 2 diabetes mellitus without complications; E78.5 Hyperlipidemia, unspecified; E03.9 Hypothyroidism, unspecified; Z87.891 Personal history of nicotine dependence; Z79.4 Long term (current) use of insulin; Z79.899 Other long term (current) drug therapy; Z88.0 Allergy status to penicillin

== ENCOUNTER 2017-01-29 17:53 | Emergency (ER) | payer MEDICARE ==
[~2017-01-29] VITALS: Ht 162.6 cm; Wt 88.6 kg
[2017-01-29] MEDS ORDERED: NITR100C39 PO (20:40)
[2017-01-29] MEDS ORDERED: NITROFURANTOIN (MACROBID) 100 MG CAP PO ONE (20:45)
[2017-01-29 21:14] VITALS: BP 166/79
== END 2017-01-29 21:21 | disposition home or self-care (01) ==
LOC: M ED 17:53
DX: N39.0 Urinary tract infection, site not specified (principal); R33.9 Retention of urine, unspecified; R31.9 Hematuria, unspecified; Z96.0 Presence of urogenital implants; E11.9 Type 2 diabetes mellitus without complications; E78.5 Hyperlipidemia, unspecified; E03.9 Hypothyroidism, unspecified; Z85.46 Personal history of malignant neoplasm of prostate; Z87.891 Personal history of nicotine dependence; Z79.4 Long term (current) use of insulin; Z79.899 Other long term (current) drug therapy; Z88.0 Allergy status to penicillin

== ENCOUNTER 2017-01-31 02:58 | Emergency (ER) | payer MEDICARE ==
[~2017-01-31] VITALS: Ht 162.6 cm; Wt 88.6 kg
[~2017-01-31 02:58] MED LIST changes: +NITR100C39 PO
[2017-01-31 02:59] VITALS: BP 151/77
== END 2017-01-31 06:03 | disposition home or self-care (01) ==
LOC: M ED 02:58
DX: T83.098A Other mechanical complication of other urinary catheter, initial encounter (principal); X58.XXXA Exposure to other specified factors, initial encounter; Y92.89 Other specified places as the place of occurrence of the external cause; Y93.89 Activity, other specified; Y99.8 Other external cause status; E11.9 Type 2 diabetes mellitus without complications; I10 Essential (primary) hypertension; E78.5 Hyperlipidemia, unspecified; Z79.899 Other long term (current) drug therapy; Z79.4 Long term (current) use of insulin; Z88.0 Allergy status to penicillin

== ENCOUNTER 2017-02-04 12:25 | Emergency (ER) | payer MEDICARE ==
[~2017-02-04] VITALS: Ht 165.1 cm; Wt 88.6 kg
[2017-02-04 15:16] VITALS: BP 122/91
== END 2017-02-04 15:18 | disposition home or self-care (01) ==
LOC: M ED 12:25
DX: Z46.6 Encounter for fitting and adjustment of urinary device (principal); Z85.46 Personal history of malignant neoplasm of prostate; Z79.899 Other long term (current) drug therapy; Z79.4 Long term (current) use of insulin; Z88.0 Allergy status to penicillin; Z87.891 Personal history of nicotine dependence

== ENCOUNTER 2017-08-04 07:11 | Inpatient (IN) | payer MEDICARE ==
[2017-08-04 09:07] LABS: BASO % 0.4 % (0.0-1.0); EOS # 0.1 10^3/uL (0.0-0.50); EOS % 2.8 % (0.0-3.0); HEMATOCRIT 44.6 % (42.0-52.0); HEMOGLOBIN 14.4 g/dl (13.5-17.5); IMMATURE GRANULOCYTE % 0.2 % (0-3.0); LYMPH # 0.4 10^3/uL (1.5-4.5); LYMPH % 8.9 % (24.0-44.0); MEAN CORPUSCULAR HEMOGLOBIN 29.7 pg (27.0-33.0); MEAN CORPUSCULAR HGB CONC 32.3 g/dl (32.0-36.5); MONO # 0.6 10^3/uL (0.0-0.8); MONO % 12.6 % (0.0-5.0); NEUTROPHILS # 3.5 10^3/uL (1.8-7.7); NEUTROPHILS % 75.1 % (36.0-66.0); PLATELET COUNT, AUTOMATED 215 10^3/uL (150-450); RED BLOOD COUNT 4.85 10^6/uL (4.30-6.10); RED CELL DISTRIBUTION WIDTH 14.9 % (11.5-14.5); WHITE BLOOD COUNT 4.6 10^3/uL (4.0-10.0)
[2017-08-04 09:31] LABS: INR 1.03; PROTHROMBIN TIME 13.6 SECONDS (12.4-14.5)
[2017-08-04 09:32] LABS: PARTIAL THROMBOPLASTIN TIME 27.1 SECONDS (26.8-37.9)
[2017-08-04 09:39] LABS: ANION GAP 6 MEQ/L (8-16); BLOOD UREA NITROGEN 34 MG/DL (7-18); CALCIUM LEVEL 8.6 MG/DL (8.8-10.2); CARBON DIOXIDE LEVEL 25 MEQ/L (21-32); CHLORIDE LEVEL 112 MEQ/L (98-107); CPK CREATINE PHOSPHOKINASE 70 U/L (39-308); CREATININE FOR GFR 1.21 MG/DL (0.70-1.30); GLOMERULAR FILTRATION RATE > 60.0 (>35); GLUCOSE, FASTING 114 MG/DL (70-100); POTASSIUM SERUM 4.6 MEQ/L (3.5-5.1); SODIUM LEVEL 143 MEQ/L (136-145); TROPONIN I 0.03 NG/ML (< 0.10)
[2017-08-04 09:41] LABS: CK-MB VALUE MASS 2.6 NG/ML (<3.6); MB/CK RELATIVE INDEX 3.71 (< OR =4)
[2017-08-04] MEDS ORDERED: ACETAMINOPHEN TAB 650MG DOSE (2X325MG) PO (17:45)
[2017-08-04] MEDS ORDERED: ONDANSETRON 4MG/2ML VIAL (J2405) IV (17:45)
[2017-08-04] MEDS ORDERED: DEXTROSE 50% 50 ML SYRINGE IV (18:00)
[2017-08-04] MEDS ORDERED: GLUCAGON FOR INJ 1 MG VIAL (J1610) SC (18:00)
[2017-08-04] MEDS ORDERED: GLUCOSE 4 GM CHEW TABLET PO (18:00)
[2017-08-04] MEDS ORDERED: amLODIPine 5 MG TAB As Ordered (18:33)
[2017-08-04] MEDS: amLODIPine 5 MG TAB PO (18:44)
[2017-08-04 21:17] LABS: BEDSIDE GLUCOSE 151 MG/DL (83-110)
[2017-08-04 22:02] LABS: BEDSIDE GLUCOSE 145 MG/DL (83-110)
[2017-08-04] MEDS: HumaLOG INSULIN (NovoLOG) PER UNIT SC (22:06)
[2017-08-04] MEDS: hydrALAZINE INJ 20 MG/ML VIAL IV (22:16)
[2017-08-04] MEDS: SIMVASTATIN 10 MG TAB PO (22:16)
[2017-08-05] MEDS: NS 500 ML IV (01:15)
[2017-08-05] MEDS: hydrALAZINE INJ 20 MG/ML VIAL IV ×6 (01:15→21:10)
[2017-08-05] MEDS: NS 1,000 ML IV ×3 (03:34→21:16)
[2017-08-05 05:01] LABS: BASO % 0.1 % (0.0-1.0); EOS % 0.3 % (0.0-3.0); HEMATOCRIT 44.7 % (42.0-52.0); HEMOGLOBIN 14.6 g/dl (13.5-17.5); IMMATURE GRANULOCYTE % 0.3 % (0-3.0); LYMPH # 0.4 10^3/uL (1.5-4.5); LYMPH % 4.7 % (24.0-44.0); MEAN CORPUSCULAR HEMOGLOBIN 30.3 pg (27.0-33.0); MEAN CORPUSCULAR HGB CONC 32.7 g/dl (32.0-36.5); MEAN CORPUSCULAR VOLUME 92.7 fl (80.0-96.0); MONO # 0.8 10^3/uL (0.0-0.8); MONO % 9.5 % (0.0-5.0); NEUTROPHILS # 7.3 10^3/uL (1.8-7.7); NEUTROPHILS % 85.1 % (36.0-66.0); PLATELET COUNT, AUTOMATED 183 10^3/uL (150-450); RED BLOOD COUNT 4.82 10^6/uL (4.30-6.10); RED CELL DISTRIBUTION WIDTH 14.9 % (11.5-14.5); WHITE BLOOD COUNT 8.6 10^3/uL (4.0-10.0)
[2017-08-05 05:19] LABS: ANION GAP 6 MEQ/L (8-16); BLOOD UREA NITROGEN 35 MG/DL (7-18); CALCIUM LEVEL 8.4 MG/DL (8.8-10.2); CARBON DIOXIDE LEVEL 22 MEQ/L (21-32); CHLORIDE LEVEL 114 MEQ/L (98-107); CREATININE FOR GFR 1.28 MG/DL (0.70-1.30); GLOMERULAR FILTRATION RATE 56.3 (>35); GLUCOSE, FASTING 135 MG/DL (70-100); POTASSIUM SERUM 4.7 MEQ/L (3.5-5.1); SODIUM LEVEL 142 MEQ/L (136-145)
[2017-08-05] MEDS: LEVOTHYROXINE 25MCG TABLET (0.025MG) PO (06:00)
[2017-08-05 07:05] LABS: BEDSIDE GLUCOSE 128 MG/DL (83-110)
[2017-08-05] MEDS: HumaLOG INSULIN (NovoLOG) PER UNIT SC ×4 (07:11→21:00)
[2017-08-05] MEDS: TORSEMIDE 20 MG TAB PO (09:00)
[2017-08-05] MEDS: amLODIPine 5 MG TAB PO ×2 (09:13→21:00)
[2017-08-05 11:11] LABS: CHOLESTEROL LEVEL 93 MG/DL (<200); CHOLESTEROL RISK RATIO 2.214 (<5); HDL CHOLESTEROL 42 MG/DL (>40); LDL CHOLESTEROL 31.4 MG/DL (<100); NON-HDL-C 51 MG/DL; TRIGLYCERIDES LEVEL 98 MG/DL (<150)
[2017-08-05 11:13] LABS: ESTIMATED AVERAGE GLUCOSE 137 MG/DL (60-110); HEMOGLOBIN A1c 6.4 %
[2017-08-05 12:14] LABS: BEDSIDE GLUCOSE 139 MG/DL (83-110)
[2017-08-05] MEDS: HumuLIN (NovoLIN)70/30 INSULIN INJ PER UNIT SC (17:30)
[2017-08-05] MEDS: SIMVASTATIN 10 MG TAB PO (21:13)
[2017-08-06] MEDS: hydrALAZINE INJ 20 MG/ML VIAL IV ×6 (01:59→22:00)
[2017-08-06 04:44] LABS: BASO % 0.3 % (0.0-1.0); EOS # 0.1 10^3/uL (0.0-0.50); EOS % 1.6 % (0.0-3.0); HEMATOCRIT 39.8 % (42.0-52.0); IMMATURE GRANULOCYTE % 0.6 % (0-3.0); LYMPH # 0.5 10^3/uL (1.5-4.5); LYMPH % 6.9 % (24.0-44.0); MEAN CORPUSCULAR HEMOGLOBIN 30.2 pg (27.0-33.0); MEAN CORPUSCULAR HGB CONC 32.7 g/dl (32.0-36.5); MEAN CORPUSCULAR VOLUME 92.3 fl (80.0-96.0); MONO # 0.7 10^3/uL (0.0-0.8); MONO % 9.6 % (0.0-5.0); NEUTROPHILS # 5.6 10^3/uL (1.8-7.7); PLATELET COUNT, AUTOMATED 205 10^3/uL (150-450); RED BLOOD COUNT 4.31 10^6/uL (4.30-6.10)
[2017-08-06 04:51] LABS: ANION GAP 6 MEQ/L (8-16); BLOOD UREA NITROGEN 42 MG/DL (7-18); CALCIUM LEVEL 7.8 MG/DL (8.8-10.2); CARBON DIOXIDE LEVEL 23 MEQ/L (21-32); CHLORIDE LEVEL 116 MEQ/L (98-107); CREATININE FOR GFR 1.19 MG/DL (0.70-1.30); GLOMERULAR FILTRATION RATE > 60.0 (>35); GLUCOSE, FASTING 192 MG/DL (70-100); POTASSIUM SERUM 4.6 MEQ/L (3.5-5.1); SODIUM LEVEL 145 MEQ/L (136-145)
[2017-08-06] MEDS: LEVOTHYROXINE 25MCG TABLET (0.025MG) PO (06:10)
[2017-08-06] MEDS: HumaLOG INSULIN (NovoLOG) PER UNIT SC ×4 (08:37→20:46)
[2017-08-06] MEDS: amLODIPine 5 MG TAB PO ×2 (08:37→20:42)
[2017-08-06] MEDS: TORSEMIDE 20 MG TAB PO (08:37)
[2017-08-06] MEDS: HumuLIN (NovoLIN)70/30 INSULIN INJ PER UNIT SC ×2 (09:56→17:06)
[2017-08-06 10:12] LABS: BEDSIDE GLUCOSE 205 MG/DL (83-110)
[2017-08-06 10:13] LABS: BEDSIDE GLUCOSE 159 MG/DL (83-110)
[2017-08-06 11:35] LABS: AMORPHOUS SEDIMENT RFX SMALL (NEGATIVE); KETONE, URINE AUTO RFX NEGATIVE (NEGATIVE); LEUKOCYTE ESTERASE UR AUTO RFX 3+ (NEGATIVE); NITRITE, URINE AUTO RFX NEGATIVE (NEGATIVE); RBC, URINE AUTO RFX 8 /HPF (0-3); SPECIFIC GRAVITY UR AUTO RFX 1.005 (1.002-1.035); SQUAM EPITHELIAL CELL UR AURFX 1 /HPF (0-6); WBC, URINE AUTO RFX 31 /HPF (0-3)
[2017-08-06 11:45] LABS: BEDSIDE GLUCOSE 138 MG/DL (83-110)
[2017-08-06 12:29] LABS: BEDSIDE GLUCOSE 141 MG/DL (83-110)
[2017-08-06] MEDS: MOM 30ML SUSPENSION UDC PO (13:41)
[2017-08-06] MEDS: SENOKOT S TAB PO (13:41)
[2017-08-06 16:58] LABS: BEDSIDE GLUCOSE 194 MG/DL (83-110)
[2017-08-06 20:47] LABS: BEDSIDE GLUCOSE 154 MG/DL (83-110)
[2017-08-06] MEDS: SIMVASTATIN 10 MG TAB PO (20:49)
[2017-08-07] MEDS: hydrALAZINE INJ 20 MG/ML VIAL IV ×3 (01:13→10:00)
[2017-08-07 05:12] LABS: BASO % 0.2 % (0.0-1.0); EOS # 0.2 10^3/uL (0.0-0.50); EOS % 2.9 % (0.0-3.0); HEMATOCRIT 40.7 % (42.0-52.0); HEMOGLOBIN 13.3 g/dl (13.5-17.5); IMMATURE GRANULOCYTE % 0.5 % (0-3.0); LYMPH # 0.5 10^3/uL (1.5-4.5); LYMPH % 7.9 % (24.0-44.0); MEAN CORPUSCULAR HEMOGLOBIN 29.9 pg (27.0-33.0); MEAN CORPUSCULAR HGB CONC 32.7 g/dl (32.0-36.5); MEAN CORPUSCULAR VOLUME 91.5 fl (80.0-96.0); MONO # 0.6 10^3/uL (0.0-0.8); MONO % 9.5 % (0.0-5.0); PLATELET COUNT, AUTOMATED 214 10^3/uL (150-450); RED BLOOD COUNT 4.45 10^6/uL (4.30-6.10); RED CELL DISTRIBUTION WIDTH 14.8 % (11.5-14.5); WHITE BLOOD COUNT 6.3 10^3/uL (4.0-10.0)
[2017-08-07 05:29] LABS: ANION GAP 4 MEQ/L (8-16); BLOOD UREA NITROGEN 47 MG/DL (7-18); CARBON DIOXIDE LEVEL 25 MEQ/L (21-32); CHLORIDE LEVEL 114 MEQ/L (98-107); GLOMERULAR FILTRATION RATE > 60.0 (>35); GLUCOSE, FASTING 118 MG/DL (70-100); POTASSIUM SERUM 4.2 MEQ/L (3.5-5.1); SODIUM LEVEL 143 MEQ/L (136-145)
[2017-08-07] MEDS: LEVOTHYROXINE 25MCG TABLET (0.025MG) PO (06:57)
[2017-08-07] MEDS: SENOKOT S TAB PO (06:58)
[2017-08-07] MEDS: MOM 30ML SUSPENSION UDC PO (06:58)
[2017-08-07] MEDS: FLEET OIL RETENTION ENEMA PR (07:54)
[2017-08-07 08:16] LABS: BEDSIDE GLUCOSE 137 MG/DL (83-110)
[2017-08-07] MEDS: TORSEMIDE 20 MG TAB PO (08:26)
[2017-08-07] MEDS: HumaLOG INSULIN (NovoLOG) PER UNIT SC ×2 (08:26→12:21)
[2017-08-07] MEDS: HumuLIN (NovoLIN)70/30 INSULIN INJ PER UNIT SC (08:26)
[2017-08-07] MEDS: amLODIPine 5 MG TAB PO (08:27)
[2017-08-07 12:20] LABS: BEDSIDE GLUCOSE 126 MG/DL (83-110)
== END 2017-08-07 13:55 | DRG 65 ==
LOC: M ICU 08-05 00:14 → M ED 07:11 → M ED INP 17:38
DX: I61.3 Nontraumatic intracerebral hemorrhage in brain stem (principal); I16.1 Hypertensive emergency; Z66 Do not resuscitate; R27.8 Other lack of coordination; Z98.49 Cataract extraction status, unspecified eye; E11.9 Type 2 diabetes mellitus without complications; I10 Essential (primary) hypertension; E03.9 Hypothyroidism, unspecified; N40.0 Benign prostatic hyperplasia without lower urinary tract symptoms; E78.5 Hyperlipidemia, unspecified; Z79.4 Long term (current) use of insulin; Z87.891 Personal history of nicotine dependence; Z79.899 Other long term (current) drug therapy; Z88.0 Allergy status to penicillin; R27.0 Ataxia, unspecified

== ENCOUNTER 2017-08-07 14:00 | Inpatient (IN) | payer MEDICARE ==
[2017-08-07] MEDS: HumaLOG INSULIN (NovoLOG) PER UNIT SC ×6 (12:00→21:00)
[~2017-08-07 14:00] MED LIST changes: +ACETAMINOPHEN TAB 650MG DOSE (2X325MG) PO; -BACI500O59 EX; -BACI50OI TOP; -BACT800T5 PO; +BISACODYL 10 MG SUPP PR; +BISACODYL 5 MG TAB PO; -CIPR-249 PO; +DEXTROSE 50% 50 ML SYRINGE IV; -EYECAP PO; +FLEET ENEMA PR; +GLUCAGON FOR INJ 1 MG VIAL (J1610) SC; +GLUCOSE 4 GM CHEW TABLET PO; -HUMU70IN SC; -INSULIN SUBQ; -LEVO25TA5 PO; -LOSA25TA8 PO; -LOSA50TA20 PO; -MACR100C43 PO; +MOM 30ML SUSPENSION UDC PO; -NITR100C39 PO; -NORCOTAB PO; -NOVO1INJ4 SC; -PHEN-500 PO; -PREDOPD OS; -RENATAB5 PO; -SIMV10TA2 PO; -SIMV40TA2 PO; -SULF1TAB23 PO; -TORS20TA2 PO; -VITMTA PO
[2017-08-07 16:57] LABS: BEDSIDE GLUCOSE 123 MG/DL (83-110)
[2017-08-07] MEDS: HumuLIN (NovoLIN)70/30 INSULIN INJ PER UNIT SC ×2 (17:28)
[2017-08-07] MEDS: amLODIPine 5 MG TAB PO ×2 (21:50)
[2017-08-07] MEDS: SIMVASTATIN 10 MG TAB PO ×2 (21:50)
[2017-08-08] MEDS: LEVOTHYROXINE 25MCG TABLET (0.025MG) PO ×2 (05:54)
[2017-08-08 06:20] LABS: BEDSIDE GLUCOSE 119 MG/DL (83-110)
[2017-08-08 07:14] LABS: BASO % 0.3 % (0.0-1.0); EOS # 0.2 10^3/uL (0.0-0.50); HEMATOCRIT 42.2 % (42.0-52.0); HEMOGLOBIN 13.8 g/dl (13.5-17.5); IMMATURE GRANULOCYTE % 1.2 % (0-3.0); LYMPH # 0.6 10^3/uL (1.5-4.5); LYMPH % 9.2 % (24.0-44.0); MEAN CORPUSCULAR HEMOGLOBIN 29.7 pg (27.0-33.0); MEAN CORPUSCULAR HGB CONC 32.7 g/dl (32.0-36.5); MEAN CORPUSCULAR VOLUME 90.9 fl (80.0-96.0); MONO # 0.7 10^3/uL (0.0-0.8); MONO % 11.2 % (0.0-5.0); NEUTROPHILS # 4.5 10^3/uL (1.8-7.7); NEUTROPHILS % 75.1 % (36.0-66.0); PLATELET COUNT, AUTOMATED 245 10^3/uL (150-450); RED BLOOD COUNT 4.64 10^6/uL (4.30-6.10); RED CELL DISTRIBUTION WIDTH 15.1 % (11.5-14.5)
[2017-08-08 07:46] LABS: ALBUMIN 2.7 GM/DL (3.2-5.2); ALBUMIN/GLOBULIN RATIO 0.69 (1.00-1.93); ALKALINE PHOSPHATASE 131 U/L (45-117); ALT/SGPT 30 U/L (12-78); ANION GAP 8 MEQ/L (8-16); AST/SGOT 22 U/L (7-37); BILIRUBIN,TOTAL 0.3 MG/DL (0.2-1.0); BLOOD UREA NITROGEN 49 MG/DL (7-18); CALCIUM LEVEL 8.5 MG/DL (8.8-10.2); CARBON DIOXIDE LEVEL 25 MEQ/L (21-32); CHLORIDE LEVEL 111 MEQ/L (98-107); CREATININE FOR GFR 1.24 MG/DL (0.70-1.30); GLOMERULAR FILTRATION RATE 58.4 (>35); GLUCOSE, FASTING 123 MG/DL (70-100); SODIUM LEVEL 144 MEQ/L (136-145); TOTAL PROTEIN 6.6 GM/DL (6.4-8.2)
[2017-08-08] MEDS: SENOKOT S TAB PO ×2 (08:08)
[2017-08-08] MEDS: HumaLOG INSULIN (NovoLOG) PER UNIT SC ×8 (08:09→20:42)
[2017-08-08] MEDS: HumuLIN (NovoLIN)70/30 INSULIN INJ PER UNIT SC ×4 (08:09→17:46)
[2017-08-08] MEDS: TORSEMIDE 20 MG TAB PO ×2 (08:09)
[2017-08-08 11:38] LABS: BEDSIDE GLUCOSE 187 MG/DL (83-110)
[2017-08-08 12:58] LABS: BEDSIDE GLUCOSE 241 MG/DL (83-110)
[2017-08-08 16:34] LABS: BEDSIDE GLUCOSE 141 MG/DL (83-110)
[2017-08-08 20:42] LABS: BEDSIDE GLUCOSE 178 MG/DL (83-110)
[2017-08-08] MEDS: amLODIPine 5 MG TAB PO ×2 (20:42)
[2017-08-08] MEDS: SIMVASTATIN 10 MG TAB PO ×2 (20:42)
[2017-08-09] MEDS: LEVOTHYROXINE 25MCG TABLET (0.025MG) PO ×2 (06:16)
[2017-08-09 06:29] LABS: BEDSIDE GLUCOSE 110 MG/DL (83-110)
[2017-08-09] MEDS: HumuLIN (NovoLIN)70/30 INSULIN INJ PER UNIT SC ×4 (08:19→17:16)
[2017-08-09] MEDS: TORSEMIDE 20 MG TAB PO ×2 (08:20)
[2017-08-09] MEDS: HumaLOG INSULIN (NovoLOG) PER UNIT SC ×8 (08:20→20:39)
[2017-08-09] MEDS: SENOKOT S TAB PO ×2 (08:20)
[2017-08-09 11:45] LABS: BEDSIDE GLUCOSE 87 MG/DL (83-110)
[2017-08-09 16:49] LABS: BEDSIDE GLUCOSE 146 MG/DL (83-110)
[2017-08-09] MEDS: SIMVASTATIN 10 MG TAB PO ×2 (20:39)
[2017-08-09] MEDS: amLODIPine 5 MG TAB PO ×2 (20:39)
[2017-08-09 20:40] LABS: BEDSIDE GLUCOSE 123 MG/DL (83-110)
[2017-08-10] MEDS: LEVOTHYROXINE 25MCG TABLET (0.025MG) PO ×2 (06:41)
[2017-08-10 06:43] LABS: BEDSIDE GLUCOSE 118 MG/DL (83-110)
[2017-08-10] MEDS: ASPIRIN 81 MG ENTERIC TAB PO ×2 (09:34)
[2017-08-10] MEDS: HumuLIN (NovoLIN)70/30 INSULIN INJ PER UNIT SC ×4 (09:34→17:30)
[2017-08-10] MEDS: SENOKOT S TAB PO ×2 (09:34)
[2017-08-10] MEDS: TORSEMIDE 20 MG TAB PO ×2 (09:35)
[2017-08-10] MEDS: HumaLOG INSULIN (NovoLOG) PER UNIT SC ×8 (09:36→21:00)
[2017-08-10 12:33] LABS: BEDSIDE GLUCOSE 149 MG/DL (83-110)
[2017-08-10] MEDS: BISACODYL 5 MG TAB PO ×2 (13:18)
[2017-08-10 16:49] LABS: BEDSIDE GLUCOSE 117 MG/DL (83-110)
[2017-08-10] MEDS: amLODIPine 5 MG TAB PO ×2 (20:39)
[2017-08-10] MEDS: SIMVASTATIN 10 MG TAB PO ×2 (20:39)
[2017-08-10 20:49] LABS: BEDSIDE GLUCOSE 160 MG/DL (83-110)
[2017-08-11] MEDS: LEVOTHYROXINE 25MCG TABLET (0.025MG) PO ×2 (06:24)
[2017-08-11 06:38] LABS: BEDSIDE GLUCOSE 111 MG/DL (83-110)
[2017-08-11] MEDS: HumuLIN (NovoLIN)70/30 INSULIN INJ PER UNIT SC ×4 (08:10→17:33)
[2017-08-11] MEDS: ASPIRIN 81 MG ENTERIC TAB PO ×2 (08:11)
[2017-08-11] MEDS: TORSEMIDE 20 MG TAB PO ×2 (08:11)
[2017-08-11] MEDS: HumaLOG INSULIN (NovoLOG) PER UNIT SC ×4 (08:11→12:31)
[2017-08-11] MEDS: SENOKOT S TAB PO ×2 (08:11)
[2017-08-11 11:23] LABS: BEDSIDE GLUCOSE 224 MG/DL (83-110)
[2017-08-11 15:20] LABS: KETONE, URINE AUTO RFX NEGATIVE (NEGATIVE); LEUKOCYTE ESTERASE UR AUTO RFX 1+ (NEGATIVE); MUCUS, URINE RFX SMALL (NEGATIVE); NITRITE, URINE AUTO RFX NEGATIVE (NEGATIVE); RBC, URINE AUTO RFX 2 /HPF (0-3); SPECIFIC GRAVITY UR AUTO RFX 1.006 (1.002-1.035); SQUAM EPITHELIAL CELL UR AURFX 0 /HPF (0-6); WBC, URINE AUTO RFX 14 /HPF (0-3)
[2017-08-11 16:39] LABS: BEDSIDE GLUCOSE 102 MG/DL (83-110)
[2017-08-11 19:37] LABS: BEDSIDE GLUCOSE 148 MG/DL (83-110)
[2017-08-11] MEDS: amLODIPine 5 MG TAB PO ×2 (20:40)
[2017-08-11] MEDS: SIMVASTATIN 10 MG TAB PO ×2 (20:40)
[2017-08-12] MEDS: LEVOTHYROXINE 25MCG TABLET (0.025MG) PO ×2 (05:33)
[2017-08-12 05:51] LABS: BEDSIDE GLUCOSE 106 MG/DL (83-110)
[2017-08-12] MEDS: TORSEMIDE 20 MG TAB PO ×2 (08:49)
[2017-08-12] MEDS: ASPIRIN 81 MG ENTERIC TAB PO ×2 (08:49)
[2017-08-12] MEDS: SENOKOT S TAB PO ×2 (08:49)
[2017-08-12] MEDS: HumuLIN (NovoLIN)70/30 INSULIN INJ PER UNIT SC ×4 (08:50→17:50)
[2017-08-12] MEDS: BISACODYL 5 MG TAB PO ×2 (11:43)
[2017-08-12 12:18] LABS: BEDSIDE GLUCOSE 102 MG/DL (83-110)
[2017-08-12 17:19] LABS: BEDSIDE GLUCOSE 164 MG/DL (83-110)
[2017-08-12] MEDS: SIMVASTATIN 10 MG TAB PO ×2 (20:41)
[2017-08-12] MEDS: amLODIPine 5 MG TAB PO ×2 (20:42)
[2017-08-12 21:28] LABS: BEDSIDE GLUCOSE 141 MG/DL (83-110)
[2017-08-13] MEDS: LEVOTHYROXINE 25MCG TABLET (0.025MG) PO ×2 (06:00)
[2017-08-13 06:05] LABS: BEDSIDE GLUCOSE 69 MG/DL (83-110)
[2017-08-13] MEDS: HumuLIN (NovoLIN)70/30 INSULIN INJ PER UNIT SC ×4 (08:11→17:52)
[2017-08-13] MEDS: ASPIRIN 81 MG ENTERIC TAB PO ×2 (08:11)
[2017-08-13] MEDS: TORSEMIDE 20 MG TAB PO ×2 (08:11)
[2017-08-13] MEDS: SENOKOT S TAB PO ×2 (08:11)
[2017-08-13] MEDS: BACTRIM 160MG/800MG DS TAB PO ×4 (10:57→20:52)
[2017-08-13] MEDS: BISACODYL 5 MG TAB PO ×2 (10:58)
[2017-08-13 11:12] LABS: BEDSIDE GLUCOSE 113 MG/DL (83-110)
[2017-08-13 16:46] LABS: BEDSIDE GLUCOSE 122 MG/DL (83-110)
[2017-08-13 20:38] LABS: BEDSIDE GLUCOSE 212 MG/DL (83-110)
[2017-08-13] MEDS: amLODIPine 5 MG TAB PO ×2 (20:52)
[2017-08-13] MEDS: SIMVASTATIN 10 MG TAB PO ×2 (20:52)
[2017-08-14] MEDS: LEVOTHYROXINE 25MCG TABLET (0.025MG) PO ×2 (05:10)
[2017-08-14 08:03] LABS: BEDSIDE GLUCOSE 110 MG/DL (83-110)
[2017-08-14 08:25] LABS: BASO # 0.1 10^3/uL (0.0-0.2); BASO % 0.9 % (0.0-1.0); EOS # 0.2 10^3/uL (0.0-0.50); EOS % 3.2 % (0.0-3.0); HEMATOCRIT 45.3 % (42.0-52.0); HEMOGLOBIN 14.7 g/dl (13.5-17.5); IMMATURE GRANULOCYTE % 1.1 % (0-3.0); LYMPH # 0.8 10^3/uL (1.5-4.5); LYMPH % 14.3 % (24.0-44.0); MEAN CORPUSCULAR HEMOGLOBIN 29.9 pg (27.0-33.0); MEAN CORPUSCULAR HGB CONC 32.5 g/dl (32.0-36.5); MEAN CORPUSCULAR VOLUME 92.1 fl (80.0-96.0); MONO # 0.6 10^3/uL (0.0-0.8); MONO % 10.1 % (0.0-5.0); NEUTROPHILS % 70.4 % (36.0-66.0); PLATELET COUNT, AUTOMATED 294 10^3/uL (150-450); RED BLOOD COUNT 4.92 10^6/uL (4.30-6.10); RED CELL DISTRIBUTION WIDTH 14.7 % (11.5-14.5); WHITE BLOOD COUNT 5.7 10^3/uL (4.0-10.0)
[2017-08-14 08:33] LABS: ANION GAP 8 MEQ/L (8-16); BLOOD UREA NITROGEN 45 MG/DL (7-18); CALCIUM LEVEL 8.7 MG/DL (8.8-10.2); CARBON DIOXIDE LEVEL 29 MEQ/L (21-32); CHLORIDE LEVEL 105 MEQ/L (98-107); CREATININE FOR GFR 1.44 MG/DL (0.70-1.30); GLOMERULAR FILTRATION RATE 49.2 (>35); GLUCOSE, FASTING 118 MG/DL (70-100); POTASSIUM SERUM 3.5 MEQ/L (3.5-5.1); SODIUM LEVEL 142 MEQ/L (136-145)
[2017-08-14] MEDS: SENOKOT S TAB PO ×2 (08:44)
[2017-08-14] MEDS: HumuLIN (NovoLIN)70/30 INSULIN INJ PER UNIT SC ×4 (08:44→17:24)
[2017-08-14] MEDS: TORSEMIDE 20 MG TAB PO ×2 (08:45)
[2017-08-14] MEDS: BACTRIM 160MG/800MG DS TAB PO ×4 (08:45→20:39)
[2017-08-14] MEDS: ASPIRIN 81 MG ENTERIC TAB PO ×2 (08:45)
[2017-08-14] MEDS: NS 500 ML IV ×2 (15:00)
[2017-08-14 16:21] LABS: BEDSIDE GLUCOSE 166 MG/DL (83-110)
[2017-08-14 19:57] LABS: BEDSIDE GLUCOSE 189 MG/DL (83-110)
[2017-08-14] MEDS: amLODIPine 5 MG TAB PO ×2 (20:39)
[2017-08-14] MEDS: SIMVASTATIN 10 MG TAB PO ×2 (20:39)
[2017-08-15] MEDS: LEVOTHYROXINE 25MCG TABLET (0.025MG) PO ×2 (06:05)
[2017-08-15 06:06] LABS: BEDSIDE GLUCOSE 128 MG/DL (83-110)
[2017-08-15] MEDS: HumuLIN (NovoLIN)70/30 INSULIN INJ PER UNIT SC ×4 (09:14→17:53)
[2017-08-15] MEDS: TORSEMIDE 20 MG TAB PO ×2 (09:15)
[2017-08-15] MEDS: ASPIRIN 81 MG ENTERIC TAB PO ×2 (09:15)
[2017-08-15] MEDS: BACTRIM 160MG/800MG DS TAB PO ×4 (09:15→21:25)
[2017-08-15] MEDS: SENOKOT S TAB PO ×2 (09:15)
[2017-08-15 11:55] LABS: BEDSIDE GLUCOSE 129 MG/DL (83-110)
[2017-08-15 16:58] LABS: BEDSIDE GLUCOSE 163 MG/DL (83-110)
[2017-08-15] MEDS: amLODIPine 5 MG TAB PO ×2 (21:25)
[2017-08-15] MEDS: SIMVASTATIN 10 MG TAB PO ×2 (21:25)
[2017-08-15 22:01] LABS: BEDSIDE GLUCOSE 81 MG/DL (83-110)
[2017-08-16] MEDS: LEVOTHYROXINE 25MCG TABLET (0.025MG) PO ×2 (05:38)
[2017-08-16 06:01] LABS: BEDSIDE GLUCOSE 86 MG/DL (83-110)
[2017-08-16 06:54] LABS: BASO % 0.6 % (0.0-1.0); EOS # 0.2 10^3/uL (0.0-0.50); EOS % 2.4 % (0.0-3.0); HEMOGLOBIN 14.1 g/dl (13.5-17.5); IMMATURE GRANULOCYTE % 1.4 % (0-3.0); LYMPH # 0.9 10^3/uL (1.5-4.5); LYMPH % 13.6 % (24.0-44.0); MEAN CORPUSCULAR HEMOGLOBIN 29.5 pg (27.0-33.0); MEAN CORPUSCULAR HGB CONC 32.8 g/dl (32.0-36.5); MONO # 0.8 10^3/uL (0.0-0.8); MONO % 12.5 % (0.0-5.0); NEUTROPHILS # 4.3 10^3/uL (1.8-7.7); NEUTROPHILS % 69.5 % (36.0-66.0); PLATELET COUNT, AUTOMATED 264 10^3/uL (150-450); RED BLOOD COUNT 4.78 10^6/uL (4.30-6.10); RED CELL DISTRIBUTION WIDTH 14.6 % (11.5-14.5); WHITE BLOOD COUNT 6.3 10^3/uL (4.0-10.0)
[2017-08-16 07:09] LABS: ANION GAP 5 MEQ/L (8-16); BLOOD UREA NITROGEN 42 MG/DL (7-18); CALCIUM LEVEL 8.7 MG/DL (8.8-10.2); CARBON DIOXIDE LEVEL 29 MEQ/L (21-32); CHLORIDE LEVEL 106 MEQ/L (98-107); CREATININE FOR GFR 1.67 MG/DL (0.70-1.30); GLOMERULAR FILTRATION RATE 41.4 (>35); GLUCOSE, FASTING 82 MG/DL (70-100); SODIUM LEVEL 140 MEQ/L (136-145)
[2017-08-16] MEDS: HumuLIN (NovoLIN)70/30 INSULIN INJ PER UNIT SC ×4 (08:52→18:06)
[2017-08-16] MEDS: TORSEMIDE 20 MG TAB PO ×2 (08:52)
[2017-08-16] MEDS: SENOKOT S TAB PO ×2 (08:52)
[2017-08-16] MEDS: ASPIRIN 81 MG ENTERIC TAB PO ×2 (08:52)
[2017-08-16 11:45] LABS: BEDSIDE GLUCOSE 134 MG/DL (83-110)
[2017-08-16 17:15] LABS: BEDSIDE GLUCOSE 120 MG/DL (83-110)
[2017-08-16 20:43] LABS: BEDSIDE GLUCOSE 97 MG/DL (83-110)
[2017-08-16] MEDS: SIMVASTATIN 10 MG TAB PO ×2 (20:43)
[2017-08-16] MEDS: amLODIPine 5 MG TAB PO ×2 (20:44)
[2017-08-17 06:16] LABS: BEDSIDE GLUCOSE 92 MG/DL (83-110)
[2017-08-17] MEDS: LEVOTHYROXINE 25MCG TABLET (0.025MG) PO ×2 (06:16)
[2017-08-17 07:36] LABS: BASO % 0.4 % (0.0-1.0); EOS # 0.2 10^3/uL (0.0-0.50); HEMATOCRIT 41.8 % (42.0-52.0); HEMOGLOBIN 13.8 g/dl (13.5-17.5); IMMATURE GRANULOCYTE % 0.8 % (0-3.0); LYMPH # 0.5 10^3/uL (1.5-4.5); LYMPH % 9.9 % (24.0-44.0); MEAN CORPUSCULAR HEMOGLOBIN 29.9 pg (27.0-33.0); MEAN CORPUSCULAR VOLUME 90.5 fl (80.0-96.0); MONO # 0.6 10^3/uL (0.0-0.8); MONO % 12.2 % (0.0-5.0); NEUTROPHILS # 3.9 10^3/uL (1.8-7.7); NEUTROPHILS % 73.7 % (36.0-66.0); PLATELET COUNT, AUTOMATED 266 10^3/uL (150-450); RED BLOOD COUNT 4.62 10^6/uL (4.30-6.10); RED CELL DISTRIBUTION WIDTH 14.9 % (11.5-14.5); WHITE BLOOD COUNT 5.3 10^3/uL (4.0-10.0)
[2017-08-17 08:02] LABS: ANION GAP 7 MEQ/L (8-16); BLOOD UREA NITROGEN 45 MG/DL (7-18); CALCIUM LEVEL 8.6 MG/DL (8.8-10.2); CARBON DIOXIDE LEVEL 27 MEQ/L (21-32); CHLORIDE LEVEL 106 MEQ/L (98-107); GLOMERULAR FILTRATION RATE 40.6 (>35); GLUCOSE, FASTING 109 MG/DL (70-100); POTASSIUM SERUM 4.1 MEQ/L (3.5-5.1); SODIUM LEVEL 140 MEQ/L (136-145)
[2017-08-17] MEDS: ASPIRIN 81 MG ENTERIC TAB PO ×2 (08:31)
[2017-08-17] MEDS: SENOKOT S TAB PO ×2 (08:31)
[2017-08-17] MEDS: HumuLIN (NovoLIN)70/30 INSULIN INJ PER UNIT SC ×2 (08:31)
[2017-08-17] MEDS: TORSEMIDE 20 MG TAB PO ×2 (08:32)
== END 2017-08-17 11:50 | disposition home or self-care (01) | DRG 57 ==
LOC: M PM&R 14:00
PROVIDERS: Physical Medicine & Rehabilitation
DX: I69.398 Other sequelae of cerebral infarction (principal); N39.0 Urinary tract infection, site not specified; N17.9 Acute kidney failure, unspecified; E11.65 Type 2 diabetes mellitus with hyperglycemia; I10 Essential (primary) hypertension; E03.9 Hypothyroidism, unspecified; R42 Dizziness and giddiness; H54.40 Blindness, one eye, unspecified eye; B96.4 Proteus (mirabilis) (morganii) as the cause of diseases classified elsewhere; K59.00 Constipation, unspecified; Z66 Do not resuscitate; H35.30 Unspecified macular degeneration; R53.81 Other malaise; E78.5 Hyperlipidemia, unspecified; Z98.49 Cataract extraction status, unspecified eye; Z85.46 Personal history of malignant neoplasm of prostate; Z87.891 Personal history of nicotine dependence; Z79.4 Long term (current) use of insulin; Z79.899 Other long term (current) drug therapy; Z88.0 Allergy status to penicillin

== ENCOUNTER 2018-01-13 11:16 | Observation (INO) | payer MEDICARE ==
[2018-01-13] MEDS: NS 1,000 ML IV (12:45)
[2018-01-13 13:31] LABS: BASO % 0.4 % (0.0-1.0); EOS # 0.1 10^3/uL (0.0-0.50); EOS % 1.2 % (0.0-3.0); HEMATOCRIT 46.5 % (42.0-52.0); LYMPH # 0.4 10^3/uL (1.5-4.5); LYMPH % 6.8 % (24.0-44.0); MEAN CORPUSCULAR HEMOGLOBIN 30.5 pg (27.0-33.0); MEAN CORPUSCULAR HGB CONC 32.3 g/dl (32.0-36.5); MEAN CORPUSCULAR VOLUME 94.5 fl (80.0-96.0); MONO # 0.6 10^3/uL (0.0-0.8); MONO % 11.8 % (0.0-5.0); NEUTROPHILS # 4.1 10^3/uL (1.8-7.7); NEUTROPHILS % 78.8 % (36.0-66.0); PLATELET COUNT, AUTOMATED 194 10^3/uL (150-450); RED BLOOD COUNT 4.92 10^6/uL (4.30-6.10); RED CELL DISTRIBUTION WIDTH 14.7 % (11.5-14.5); WHITE BLOOD COUNT 5.2 10^3/uL (4.0-10.0)
[2018-01-13 13:43] LABS: INR 1.01; PROTHROMBIN TIME 13.4 SECONDS (12.1-14.4)
[2018-01-13 13:44] LABS: PARTIAL THROMBOPLASTIN TIME 25.7 SECONDS (25.4-37.6)
[2018-01-13 13:46] LABS: KETONE, URINE AUTO RFX NEGATIVE (NEGATIVE); LEUKOCYTE ESTERASE UR AUTO RFX NEGATIVE (NEGATIVE); NITRITE, URINE AUTO RFX NEGATIVE (NEGATIVE); RBC, URINE AUTO RFX TNTC /HPF (0-3); SPECIFIC GRAVITY UR AUTO RFX 1.011 (1.002-1.035); SQUAM EPITHELIAL CELL UR AURFX 0 /HPF (0-6); WBC, URINE AUTO RFX 0 /HPF (0-3)
[2018-01-13 14:01] LABS: ALBUMIN 3.6 GM/DL (3.2-5.2); ALBUMIN/GLOBULIN RATIO 1.03 (1.00-1.93); ALKALINE PHOSPHATASE 112 U/L (45-117); ALT/SGPT 48 U/L (12-78); ANION GAP 6 MEQ/L (8-16); AST/SGOT 29 U/L (7-37); BILIRUBIN,DIRECT 0.1 MG/DL (0.0-0.2); BILIRUBIN,TOTAL 0.4 MG/DL (0.2-1.0); BLOOD UREA NITROGEN 51 MG/DL (7-18); CALCIUM LEVEL 9.4 MG/DL (8.8-10.2); CARBON DIOXIDE LEVEL 24 MEQ/L (21-32); CHLORIDE LEVEL 112 MEQ/L (98-107); CREATININE FOR GFR 1.41 MG/DL (0.70-1.30); GLOMERULAR FILTRATION RATE 50.4 (>35); GLUCOSE, FASTING 114 MG/DL (70-100); POTASSIUM SERUM 4.5 MEQ/L (3.5-5.1); SODIUM LEVEL 142 MEQ/L (136-145); TOTAL PROTEIN 7.1 GM/DL (6.4-8.2)
[2018-01-13] MEDS: PHENAZOPYRIDINE 100 MG TAB PO (20:00)
[2018-01-13] MEDS: ACETAMINOPH W/CODEINE #3 TAB UD PO (20:00)
[2018-01-13] MEDS: GENTAMICIN SULF INJ 80MG/2ML VIAL (J1580) As Ordered (22:10)
[2018-01-13] MEDS: CIPROFLOXACIN/D5W 400 MG/200 ML BAG (J0744) As Ordered (22:10)
[2018-01-13] MEDS ORDERED: ACETAMINOPHEN TAB 650MG DOSE (2X325MG) PO (22:15)
[2018-01-13 22:19] LABS: NT-PRO BNP 906 PG/ML (<450)
[2018-01-13] MEDS ORDERED: ONDANSETRON 4MG/2ML VIAL (J2405) As Ordered (22:25)
[2018-01-13] MEDS ORDERED: PHENYLephrine HCL 500 MCG/5 ML (100MCG/ML) SYRINGE (J2370) As Ordered ×2 (22:25)
[2018-01-13] MEDS ORDERED: ROCURONIUM BROMIDE 50 MG/5 ML VIAL As Ordered (22:25)
[2018-01-13] MEDS ORDERED: fentaNYL 100 MCG/2 ML INJECTION (J3010) As Ordered (22:25)
[2018-01-13] MEDS ORDERED: MIDAZOLAM INJ 2 MG/2 ML VIAL (J2250) As Ordered (22:25)
[2018-01-13] MEDS ORDERED: LIDOCAINE 2% INJ 100 MG/5 ML SDV (FOR ANES.) As Ordered (22:26)
[2018-01-13] MEDS ORDERED: PROPOFOL 200 MG/20 ML VIAL As Ordered (22:26)
[2018-01-13] MEDS ORDERED: CALCIUM CHLORIDE 10% 1 GM/10 ML SYR As Ordered (22:26)
[2018-01-13] MEDS ORDERED: SUGAMMADEX SODIUM 500 MG/5 ML VIAL (BRIDION) As Ordered (22:27)
[2018-01-13] MEDS: HumuLIN (NovoLIN)70/30 INSULIN INJ PER UNIT SC (22:41)
[2018-01-13] MEDS: LIDOCAINE 2% 5ML JELLY UROJET As Ordered (22:59)
[2018-01-13] MEDS ORDERED: NS 1,000 ML IV (23:57)
[2018-01-14] MEDS ORDERED: fentaNYL 100 MCG/2 ML INJECTION (J3010) IV (00:30)
[2018-01-14] MEDS ORDERED: HYDROMORPHONE HCL 0.5 MG/ 0.5 ML SYRINGE (J1170 PER 1) IV (00:30)
[2018-01-14] MEDS ORDERED: PERCOCET 5MG/325MG TAB PO ×2 (00:30→01:15)
[2018-01-14] MEDS: LR 1,000 ML IV (00:30)
[2018-01-14] MEDS ORDERED: ONDANSETRON 4MG/2ML VIAL (J2405) IV ×2 (00:30)
[2018-01-14] MEDS: SIMVASTATIN 10 MG TAB PO ×2 (02:00→22:38)
[2018-01-14] MEDS: LOSARTAN 25 MG TAB PO ×2 (02:02→21:00)
[2018-01-14 02:12] LABS: BEDSIDE GLUCOSE 139 MG/DL (83-110)
[2018-01-14] MEDS: LEVOTHYROXINE 25MCG TABLET (0.025MG) PO (06:03)
[2018-01-14 06:52] LABS: HEMOGLOBIN 13.5 g/dl (13.5-17.5); MEAN CORPUSCULAR HGB CONC 32.1 g/dl (32.0-36.5); MEAN CORPUSCULAR VOLUME 96.6 fl (80.0-96.0); PLATELET COUNT, AUTOMATED 180 10^3/uL (150-450); RED BLOOD COUNT 4.35 10^6/uL (4.30-6.10); RED CELL DISTRIBUTION WIDTH 14.9 % (11.5-14.5); WHITE BLOOD COUNT 9.8 10^3/uL (4.0-10.0)
[2018-01-14 07:13] LABS: ALBUMIN 2.6 GM/DL (3.2-5.2); ALBUMIN/GLOBULIN RATIO 0.87 (1.00-1.93); ALKALINE PHOSPHATASE 98 U/L (45-117); ALT/SGPT 34 U/L (12-78); ANION GAP 5 MEQ/L (8-16); AST/SGOT 21 U/L (7-37); BILIRUBIN,TOTAL 0.6 MG/DL (0.2-1.0); BLOOD UREA NITROGEN 35 MG/DL (7-18); CALCIUM LEVEL 8.7 MG/DL (8.8-10.2); CARBON DIOXIDE LEVEL 26 MEQ/L (21-32); CHLORIDE LEVEL 115 MEQ/L (98-107); CREATININE FOR GFR 1.35 MG/DL (0.70-1.30); GLUCOSE, FASTING 134 MG/DL (70-100); POTASSIUM SERUM 4.9 MEQ/L (3.5-5.1); SODIUM LEVEL 146 MEQ/L (136-145); TOTAL PROTEIN 5.6 GM/DL (6.4-8.2)
[2018-01-14] MEDS: MULTIVITAMINS/MINERALS THERAP 1 TAB PO (09:48)
[2018-01-14] MEDS: PANTOPRAZOLE 40MG TAB (PROTONIX) PO (09:48)
[2018-01-14] MEDS: HumuLIN (NovoLIN)70/30 INSULIN INJ PER UNIT SC ×2 (09:48→22:34)
[2018-01-14] MEDS: DOCUSATE SODIUM 100 MG CAP PO ×2 (09:48→22:38)
[2018-01-14] MEDS: FUROSEMIDE 40 MG/4 ML VIAL (J1940) IV (13:06)
[2018-01-14 23:59] LABS: BASO % 0.3 % (0.0-1.0); EOS # 0.1 10^3/uL (0.0-0.50); EOS % 0.7 % (0.0-3.0); HEMATOCRIT 40.8 % (42.0-52.0); HEMOGLOBIN 12.8 g/dl (13.5-17.5); IMMATURE GRANULOCYTE % 0.4 % (0-3.0); LYMPH # 0.5 10^3/uL (1.5-4.5); LYMPH % 4.6 % (24.0-44.0); MEAN CORPUSCULAR HEMOGLOBIN 30.8 pg (27.0-33.0); MEAN CORPUSCULAR HGB CONC 31.4 g/dl (32.0-36.5); MEAN CORPUSCULAR VOLUME 98.1 fl (80.0-96.0); MONO # 1.4 10^3/uL (0.0-0.8); MONO % 13.7 % (0.0-5.0); NEUTROPHILS # 8.5 10^3/uL (1.8-7.7); NEUTROPHILS % 80.3 % (36.0-66.0); PLATELET COUNT, AUTOMATED 169 10^3/uL (150-450); RED BLOOD COUNT 4.16 10^6/uL (4.30-6.10); RED CELL DISTRIBUTION WIDTH 15.3 % (11.5-14.5); WHITE BLOOD COUNT 10.5 10^3/uL (4.0-10.0)
[2018-01-15] MEDS: LEVOTHYROXINE 25MCG TABLET (0.025MG) PO (06:29)
[2018-01-15] MEDS: MULTIVITAMINS/MINERALS THERAP 1 TAB PO (08:30)
[2018-01-15] MEDS: HumuLIN (NovoLIN)70/30 INSULIN INJ PER UNIT SC ×2 (08:30→22:14)
[2018-01-15] MEDS: DOCUSATE SODIUM 100 MG CAP PO ×2 (08:30→22:13)
[2018-01-15] MEDS: PANTOPRAZOLE 40MG TAB (PROTONIX) PO (08:30)
[2018-01-15] MEDS: TORSEMIDE 20 MG TAB PO (08:30)
[2018-01-15] MEDS: TAMSULOSIN 0.4 MG CAP PO (16:11)
[2018-01-15] MEDS: BACTRIM 80MG/400MG TAB PO ×2 (17:09→22:11)
[2018-01-15 17:36] LABS: BEDSIDE GLUCOSE 193 MG/DL (83-110)
[2018-01-15] MEDS: LOSARTAN 25 MG TAB PO (22:13)
[2018-01-15] MEDS: SIMVASTATIN 10 MG TAB PO (22:13)
[2018-01-16] MEDS: TAMSULOSIN 0.4 MG CAP PO ×2 (05:18→18:01)
[2018-01-16] MEDS: LEVOTHYROXINE 25MCG TABLET (0.025MG) PO (05:18)
[2018-01-16] MEDS: ALBUTEROL SULFATE 2.5 MG/0.5 ML INH NEB SOLN NEB ×3 (08:00→19:47)
[2018-01-16] MEDS: MULTIVITAMINS/MINERALS THERAP 1 TAB PO (08:32)
[2018-01-16] MEDS: HumuLIN (NovoLIN)70/30 INSULIN INJ PER UNIT SC ×2 (08:33→21:23)
[2018-01-16] MEDS: PANTOPRAZOLE 40MG TAB (PROTONIX) PO (08:33)
[2018-01-16] MEDS: DOCUSATE SODIUM 100 MG CAP PO ×2 (08:33→21:22)
[2018-01-16] MEDS: BACTRIM 80MG/400MG TAB PO ×2 (10:25→21:22)
[2018-01-16 11:07] LABS: BEDSIDE GLUCOSE 185 MG/DL (83-110)
[2018-01-16 17:00] LABS: BEDSIDE GLUCOSE 193 MG/DL (83-110)
[2018-01-16 20:11] LABS: BEDSIDE GLUCOSE 235 MG/DL (83-110)
[2018-01-16] MEDS: LOSARTAN 25 MG TAB PO (21:23)
[2018-01-16] MEDS: SIMVASTATIN 10 MG TAB PO (21:23)
[2018-01-17] MEDS: LEVOTHYROXINE 25MCG TABLET (0.025MG) PO (05:23)
[2018-01-17] MEDS: TAMSULOSIN 0.4 MG CAP PO (05:23)
[2018-01-17 06:49] LABS: HEMATOCRIT 36.8 % (42.0-52.0); MEAN CORPUSCULAR HEMOGLOBIN 30.9 pg (27.0-33.0); MEAN CORPUSCULAR HGB CONC 32.6 g/dl (32.0-36.5); MEAN CORPUSCULAR VOLUME 94.8 fl (80.0-96.0); PLATELET COUNT, AUTOMATED 174 10^3/uL (150-450); RED BLOOD COUNT 3.88 10^6/uL (4.30-6.10); RED CELL DISTRIBUTION WIDTH 14.7 % (11.5-14.5)
[2018-01-17 07:10] LABS: ANION GAP 8 MEQ/L (8-16); BLOOD UREA NITROGEN 38 MG/DL (7-18); CALCIUM LEVEL 8.5 MG/DL (8.8-10.2); CARBON DIOXIDE LEVEL 24 MEQ/L (21-32); CHLORIDE LEVEL 110 MEQ/L (98-107); CREATININE FOR GFR 1.32 MG/DL (0.70-1.30); GLOMERULAR FILTRATION RATE 54.4 (>35); GLUCOSE, FASTING 92 MG/DL (70-100); POTASSIUM SERUM 4.1 MEQ/L (3.5-5.1); SODIUM LEVEL 142 MEQ/L (136-145)
[2018-01-17] MEDS: ALBUTEROL SULFATE 2.5 MG/0.5 ML INH NEB SOLN NEB (07:23)
[2018-01-17 07:49] LABS: BEDSIDE GLUCOSE 127 MG/DL (83-110)
[2018-01-17] MEDS: DOCUSATE SODIUM 100 MG CAP PO (09:27)
[2018-01-17] MEDS: HumuLIN (NovoLIN)70/30 INSULIN INJ PER UNIT SC (09:27)
[2018-01-17] MEDS: MULTIVITAMINS/MINERALS THERAP 1 TAB PO (09:28)
[2018-01-17] MEDS: PANTOPRAZOLE 40MG TAB (PROTONIX) PO (09:28)
[2018-01-17] MEDS: TORSEMIDE 20 MG TAB PO (09:29)
[2018-01-17] MEDS: BACTRIM 80MG/400MG TAB PO (11:22)
[2018-01-17 11:50] LABS: BEDSIDE GLUCOSE 103 MG/DL (83-110)
== END 2018-01-17 12:50 | disposition home or self-care (01) ==
LOC: M MS5PR 01-14 00:53 → M ED 11:16 → M ED INP 20:51
DX: R33.8 Other retention of urine (principal); R31.0 Gross hematuria; C67.9 Malignant neoplasm of bladder, unspecified; C61 Malignant neoplasm of prostate; R07.81 Pleurodynia; N18.3 Chronic kidney disease, stage 3 (moderate); I12.9 Hypertensive chronic kidney disease with stage 1 through stage 4 chronic kidney disease, or unspecified chronic kidney disease; E03.9 Hypothyroidism, unspecified; E78.5 Hyperlipidemia, unspecified; E11.9 Type 2 diabetes mellitus without complications; Z79.4 Long term (current) use of insulin; Z88.0 Allergy status to penicillin; Z79.899 Other long term (current) drug therapy; Z87.891 Personal history of nicotine dependence
CPT/HCPCS: 52001